=== PATIENT | male | born 1990 | race Caucasian/White ===

== ENCOUNTER 2024-04-17 12:00 | Emergency (ER) | payer SELFPAY ==
[2024-04-17 12:18] VITALS: BP 128/74; PULSE 78; RESP 20; TEMP 36.8; O2SAT 100
--- OUTSIDE RECORDS SUMMARY | 2024-04-17 13:46 | XMS_ITS | Referral Summary ---
Author Organization [facility] Address [address] [place] [phone] Care Team Providers Care Slot Technician Name Role Phone Joe Sultana NP Primary Care Provider Encounters Date Type Department Care Team Description 03/07/2024 4:24 PM [facility] - 03/07/2024 5:03 PM [facility] Emergency Department [address] [place] [phone] Uvulitis (Primary Dx); Acute pharyngitis, unspecified etiology Discharge Disposition: Discharge to home or self care 03/06/2024 7:25 AM [facility] - 03/06/2024 1:00 PM [facility] Emergency Department [address] [place] [phone] Wendie Christensen MD Nikolic, Jelena, MD Uvular edema (Primary Dx) Discharge Disposition: Left Against Medical Advice 03/05/2024 3:49 PM [facility] - 03/05/2024 4:52 PM [facility] Emergency Department [address] [place] [phone] Left hand pain (Primary Dx) Discharge Disposition: Discharge to home or self care 02/08/2024 10:07 AM [facility] - 02/08/2024 11:48 AM [facility] Emergency Department [address] [place] [phone] Mike Walker MD Abdominal pain (Primary Dx) Discharge Disposition: Discharge to home or self care 02/02/2024 5:37 AM [facility] - 02/02/2024 11:59 PM [facility] Hospital Encounter [facility] Emergency, Room R Discharge Disposition: Discharge to home or self care 02/01/2024 6:44 PM [facility] - 02/02/2024 5:33 AM [facility] Emergency [facility] Emergency Department [address] [place] [address] Braeden Damon MD Suicidal ideation (Primary Dx) Discharge Disposition: Discharge to not defined facility from Last 3 Months Allergies Active Allergy Reactions Criticality Noted Date Comments Cephalexin Nausea & Vomiting Medium 11/13/2018 Medications divalproex ER (DEPAKOTE ER) 250 mg 24 hr tablet Take 2 tablets (500 mg total) by mouth 2 (two) times a day 120 tablet 3 Active Additional Information Patient not taking.Reported on 03/06/2024 QUEtiapine (SEROquel) 50 mg tablet Take 1 tablet (50 mg total) by mouth nightly Active ARIPiprazole (ABILIFY) 10 mg tablet Take 1 tablet (10 mg total) by mouth daily Active ondansetron (ZOFRAN) 4 mg tablet Take 1 tablet (4 mg total) by mouth every 6 (six) hours 12 tablet 4 Active Additional Information Patient not taking.Reported on 03/06/2024 dicyclomine (BENTYL) 20 mg tablet Take 1 tablet (20 mg total) by mouth 2 (two) times a day 20 tablet 4 025 Active Additional Information Patient not taking.Reported on 03/06/2024 naproxen (NAPROSYN) 500 mg tablet Take 1 tablet (500 mg total) by mouth 2 (two) times a day with meals 30 tablet 5 Active LORazepam (ATIVAN) 0.5 mg tablet Take 1 tablet (0.5 mg total) by mouth every 6 (six) hours as needed Active azithromycin (Zithromax Z-Zenon) 250 mg tabletIndicatio ns:Uvulitis,Acu te pharyngitis, unspecified etiology Take 1 tablet (250 mg total) by mouth daily Take first 2 tablets together, then 1 every day until finished. Collaborating physician Robert Guzmán MD 6 tablet 5 Active chlorhexidine (PERIDEX) 0.12 % oral rinseIndication s:Uvulitis,Acut e pharyngitis, unspecified etiology Apply 15 mL to the mouth or throat 2 (two) times a day Swish around in mouth and gargle for 5 minutes then spit out. 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/2022 Paralysis of leg, right, transient 08/12/2021 Paralysis 08/12/2021 Diarrhea 07/31/2018 Non-intractable vomiting with nausea 07/31/2018 Bipolar 1 disorder, depressed ([facility]) 06/03/19 19 Right upper quadrant abdominal pain 06/02/2018 Visit for well man health check 06/02/2018 Gastroenteritis 02/15/2016 Overview (10/06/2021): 2 to 3 times a year Immunizations Immunization Administration Dates Next Due DTP 1992 DTP / HiB 08/31/1994,04/22/1993,01/27/1993 DTaP 12/13/1997 H1N1 Inj 02/26/2009 Hep B, Adolescent or Pediatric 04/22/1993,1992,1992 MMR 12/13/1997,08/31/1994 Meningococcal MCV4P (Menactra) 04/03/2009,2007 OPV 12/13/1997,08/31/1994,01/27/1993 ,1992 Td, adsorbed 05/14/2007 Tdap 07/10/2016 Social History Tobacco Use Types Packs/Day Years Used Date Smoking Tobacco: Some Days Cigarettes 0.3 19.2 Started: 2005 Passive Smoke Exposure: Never Smokeless Tobacco: Never Alcohol Use Standard Drinks/Week Comments Yes 0 (1 standard drink = 0.6 oz pur e alcohol) [facility] Utilities Answer Date Recorded In the past 12 months has e [employer], gas, oil, or water [employer] threatened to shut off services in your home? No 01/31/2023 Social Connection and Isolat ion Panel [NHANES] Answer Date Recorded In a typical week, how many times do you talk on the phone with family, friends, or neighbors? More than three times a week 01/31/2023 How often do you get togethe r with friends or relatives? More than three times a week 01/31/2023 How often do you attend chur ch or yazdanism services? Never 01/31/2023 Do you belong to any clubs o r organizations such as nondenominational groups, unions, fraternal or athletic groups, or school groups? No 01/31/2023 How often do you attend meet ings of the clubs or organizations you belong to? Never 01/31/2023 Are you , , di vorced, , never , or living with a partner? 01/31/2023 Overall Financial Resource Strain (CARDIA) Answe r Date Recorded How hard is it for you to pa y for the very basics like food, housing, medical care, and heating? Not hard at all 01/31/2023 Hunger Vital Sign Answer Date Recorded Within the past 12 months, y ou worried that your food would run out before you got the money to buy more. Never true 02/01/20 23 Within the past 12 months, t he food you bought just didn't last and you didn't have money to get more. Never true 01/31/2023 PRAPARE - Transportation Answer Date Re corded In the past 12 months, has l ack of transportation kept you from medical appointments or from getting medications? No 01/14 In the past 12 months, has l ack of transportation kept you from meetings, work, or from getting things needed for daily living? No 01/31/2023 Housing Stability Vital Sign Answer Enrike e Recorded In the last 12 months, was t here a time when you were not able to pay the mortgage or rent on time? No 01/31/2023 In the last 12 months, how many places have you lived? 1 01/31/2023 In the last 12 months, was t here a time when you did not have a steady place to sleep or slept in a usp (including now)? No 01/31/2023 Personal Safety Answer Date Recorded Have you ever been in or are you currently in a harmful physical or emotional relationship or is someone making you feel afraid or unsafe? Denies 03/07/2024 Education Answer Date Recorded What is the highest level of school you have completed or the highest degree you have received? High school graduate 01/31/2023 Sex and Gender Information Value Date Recorded Sex Assigned at Not on file Legal Sex Male 1:58 AM [facility] Gender Identity Not on file Sexual Orientation Not on file Last Filed Vital Signs Vital Sign Reading Time Taken Comments Blood Pressure 136/71 03/07/2024 3:55 PM [facility] Pulse 100 03/07/2024 3:55 PM [facility] Temperature 36.9 C (98.4 F) 03/07/2024 3:55 PM [facility] Respiratory Rate 16 03/07/2024 3:55 PM [facility] Oxygen Saturation 99% 03/07/2024 3:55 PM [facility] Inhaled Oxygen Concentration - - Weight 70.3 kg (155 lb) 03/07/2024 3:55 PM [facility] Height 175.3 cm (5' 9 ) 03/05/2024 3:24 PM [facility] Body Mass Index 22.89 03/05/2024 3:24 PM [facility] Plan of Treatment Not on file Medical Devices Implanted Type Area Silk Spooler Device Identifier Shelf Expiration Date Model / Serial / Lot [employer] K Wire Fix [place] Point Smooth Sgl End Ss [id number] - [id number] Implanted:Qty: 1 on 08/30/2022 by Zurdo Reese MD at [facility] Left: Hand [employer] [id number] / / [employer] Corkscrew Fiberwire 2.7mm 7mm 17.9mm Needle Wire Foot Ankle 2-0 [id number] - [id number] Implanted:Qty: 1 on 08/30/2022 by Zurdo Reese MD at [facility] Left: Hand [employer] [id number] / / Procedures Procedure Name Priority Date/Time Associated Diagnosis Comments CT SOFT TISSUE NECK W CONTRAST ED 03/06/2024 10:31 AM [facility]ER DRUGS OF ABUSE SCREEN, URINE WITHOUT CONFIRMATION STAT 03/06/2024 8:26 AM [facility]ER BLOOD CULTURE STAT 03/06/2024 8:26 AM [facility] BLOOD CULTURE STAT 03/06/2024 8:26 AM [facility] XR NECK SOFT TISSUE ED 03/06/2024 8 :07 AM [facility] EGFR STAT 03/06/2024 7:30 AM [facility] DIFFERENTIAL AUTO STAT 03/06/2024 7:3 0 AM [facility] SEPSIS LACTATE WITH REFLEX STAT 03/06/2024 7:30 AM [facility] COMPREHENSIVE METABOLIC PANEL STAT 03/06/2024 7:30 AM [facility] CBC WITH AUTO DIFFERENTIAL STAT 03/06/2024 7:30 AM [facility]ER STREPTOCOCCUS GROUP A PCR STAT 03/06/2024 7:30 AM [facility]ER INFLUENZA A/B, RSV, AND COVID-19 PCR Routine 03/06/2024 7:30 AM [facility] XR WRIST LEFT 3 OR MORE VIEWS ED 03/05/2024 4:11 PM [facility] XR HAND LEFT 3 OR MORE VIEWS ED 03/05/2024 4:[address] ABDOMEN PELVIS W CONTRAST ED 02/08/2024 10:58 AM [facility] EGFR STAT 02/08/2024 10:37 AM [facility] DIFFERENTIAL AUTO STAT 02/08/2024 10: 37 AM [facility]ER COMPREHENSIVE METABOLIC PANEL STAT 02/08/2024 10:37 AM B[facility] LO[facility]ER CBC WITH AUTO DIFFERENTIAL STAT 02/08/2024 10:37 AM [facility] EGFR STAT 02/01/2024 7:08 PM [facility] DIFFERENTIAL AUTO STAT 02/01/2024 7:0 8 PM [facility] ACETAMINOPHEN LEVEL STAT 02/01/2024 7 :08 PM [facility] SALICYLATE LEVEL STAT 02/01/2024 7:08 PM [facility] DRUGS OF ABUSE SCREEN, URINE WITHOUT CONFIRMATION STAT 02/01/2024 7:08 PM [facility]ER ETHANOL STAT 02/01/2024 7:08 PM [facility] THYROID FUNCTION CASCADE STAT 02/01/2024 7:08 PM [facility]ER COMPREHENSIVE METABOLIC PANEL STAT 02/01/2024 7:08 PM [facility] CBC WITH AUTO DIFFERENTIAL STAT 02/01/2024 7:08 PM [facility] COVID-19 CORONAVIRUS RNA Routine 02/01/2024 7:08 PM [facility] URINALYSIS AND REFLEX TO MICROSCOPIC AND CULTURE STAT 02/01/2024 7:08 PM BOLT LO[facility]ER from Last 3 Months Results * CT Neck Soft Tissue W Contrast (03/06/2024 10:31 AM B[facility]T LO[facility]ER) Anatomical Region Laterality Modality Head and Neck N/A Computed Tomogra phy 03/06/2024 10:4 8 AM B[facility]T LO[facility]ER Narrative 03/06/2024 10:59 AM B[facility]T LO[facility]ER EXAM DESCRIPTION: CT SOFT TISSUE NECK W CONTRAST REASON FOR STUDY: Epiglottitis or tonsillitis suspected, Soft tissue infection suspected, neck, xray done Pt to ED via EMS. Per EMS Pt arrived Pt has notable raspy voice and airway swelling. Pt given 125 solumedrol, 50 benadryl, and 0.3 EPI. Pt uvula swollen at time of arrival. Pt unsure what substance caused the reaction. TECHNIQUE: Post IV contrast scanning from skull base through lung apices. Reconstructed MPR images reviewed. All images stored on PACS. Automated exposure control was used as a dose optimization technique for this examination. CONTRAST TYPE/DOSE: 75mL of IOVERSOL 350 MG IODINE/ML INTRAVENOUS SYRINGE injected via intravenous COMPARISON: 03/06/2024 plain radiographs FINDINGS: Metallic artifact related to dental hardware identified obscuring detail. SOFT TISSUE: No mass, edema or inflammatory change. ORAL CAVITY/FLOOR OF MOUTH, PHARYNX, LARYNX, HYPOPHARYNX: Pharyngeal mucosal space demonstrates diffuse moderate edematous change. The uvula is prominent suggesting edematous enlargement. The adjacent tonsils are prominent in a relatively symmetric fashion suggesting inflammatory or edematous change without focal central fluid collection or peripheral enhancement to suggest abscess as best visualized. The epiglottis has a normal size and position. No marked surrounding edema or fluid collection. LYMPHADENOPATHY: No adenopathy. MAJOR SALIVARY GLANDS: No solid or cystic masses. No inflammatory changes. THYROID: Normal size. No nodules greater than 1 cm. VASCULATURE: No apparent critical stenosis or occlusion. INTRACRANIAL/SKULL BASE/INCLUDED ORBITS: Limited intracranial evaluation. No abnormal findings. PARANASAL SINUSES: Well-aerated. CERVICAL SPINE: No significant abnormalities. LUNG APICES: Clear. OTHER: No other significant finding. IMPRESSION: Diffuse edematous changes of the pharyngeal mucosal space and tonsils without evidence of abscess. No evidence of epiglottitis. THIS IS AN ELECTRONICALLY VERIFIED FINAL REPORT 03/06/2024 10:59 AM - Electronically signed by Kahlil Sommer M.D. RB: MARYLU Report ID: [id number] Reading Location: [place] [address] Procedure Note Kahlil Sommer MD - 03/06/2024 EXAM DESCRIPTION: CT SOFT TISSUE NECK W CONTRAST REASON FOR STUDY: Epiglottitis or tonsillitis suspected, Soft tissue infection suspected, neck, xray done Pt to ED via EMS. Per EMS Pt arrived Pt has notable raspy voice and airway swelling. Pt given 125 solumedrol, 50 benadryl, and 0.3 EPI. Ptuvula swollen at time of arrival. Pt unsure what substance caused the reaction. TECHNIQUE: Post IV contrast scanning from skull base through lung apices. Reconstructed MPR images reviewed. All images stored on PACS. Automated exposure control was used as a dose optimization technique for this examination. CONTRAST TYPE/DOSE: 75mL of IOVERSOL 350 MG IODINE/ML INTRAVENOUSSYRINGE injected via intravenous COMPARISON: 03/06/2024 plain radiographs FINDINGS: Metallic artifact related to dental hardware identified obscuring detail. SOFT TISSUE: No mass, edema or inflammatory change. ORAL CAVITY/FLOOR OF MOUTH, PHARYNX, LARYNX, HYPOPHARYNX: Pharyngeal mucosal space demonstrates diffuse moderate edematous change.The uvula is prominent suggesting edematous enlargement. The adjacent tonsils are prominent in a relatively symmetric fashion suggesting inflammatory or edematous change without focal central fluid collection or peripheral enhancement to suggest abscess as bestvisualized. The epiglottis has a normal size and position. No marked surroundingedema or fluid collection. LYMPHADENOPATHY: No adenopathy. MAJOR SALIVARY GLANDS: No solid or cystic masses. No inflammatorychanges. THYROID: Normal size. No nodules greater than 1 cm. VASCULATURE: No apparent critical stenosis or occlusion. INTRACRANIAL/SKULL BASE/INCLUDED ORBITS: Limited intracranialevaluation. No abnormal findings. PARANASAL SINUSES: Well-aerated. CERVICAL SPINE: No significant abnormalities. LUNG APICES: Clear. OTHER: No other significant finding. IMPRESSION: Diffuse edematous changes of the pharyngeal mucosal space and tonsilswithout evidence of abscess. No evidence of epiglottitis. THIS IS AN ELECTRONICALLY VERIFIED FINAL REPORT 03/06/2024 10:59 AM - Electronically signed by Kahlil Sommer M.D. RB: MARYLU Report ID: [id number] Reading Location: [place] [address] Wendie Christensen MD IM CT PROCEDURES Final R esult * (ABNORMAL) Drugs of Abuse Screen, Urine without Confirmation (03/06/2024 8:26 AM [facility]T [facility]ER) Amphetamine, ur Not Detected CutOff 500ng/mL Comment: Interpretive Data - Amphetamines: Samples containing greater than 500 ng/mL d-methamphetamine or other cross-reacting amphetamine compounds are reported as positive. Amphetamine immunoassays are subject to significant false positive rates due to cross-reactivity of non-amphetamine drugs. Confirmatory testing required for definitive results. Current Interpretive Data was last reviewed 2022. Barbiturates, ur Not Detected CutOff 200ng/mL [facility] ([place]) Comment: Interpretive Data - Barbiturates: Samples containing greater than 200 ng/mL secobarbital or other cross-reacting barbiturate compounds are reported as positive. False positive and false negative results are possible. Confirmatory testing required for definitive results. Current Interpretive Data was last reviewed 2022. Benzodiazepines, ur Screen Positive, presumptive (A) CutOff 100ng/mL [facility] ([place]) Comment: Interpretive Data - Benzodiazepines: Samples containing greater than 100 ng/mL nordiazepam or other cross-reacting compounds are reported as positive. False positive and false negative results are possible. Confirmatory testing required for definitive results. Current Interpretive Data was last reviewed 2022. Cannabinoids, ur Not Detected CutOff 50 ng/mL [facility] ([place]) Comment: Interpretive Data - Cannabinoids: Samples containing greater than 50 ng/mL delta-9 THC -COOH or other cross- reacting compounds are reported as positive. False positive and false negative results are possible. Confirmatory testing required for definitive results. Current Interpretive Data was last reviewed 2022. Cocaine, ur Not Detected CutOff 150ng/mL [facility] ([place]) Comment: Interpretive Data - Cocaine: Samples containing greater than 150 ng/mL benzoylecgonine or other cross- reacting compounds are reported as positive. False positive and false negative results are possible. Confirmatory testing required for definitive results. Current Interpretive Data was last reviewed 2022. Fentanyl, Ur Not Detected CutOff 5 ng/mL [facility] ([place]) Comment: Interpretive Data - Fentanyl: Samples containing greater than 5 ng/mL norfentanyl, fentanyl, or other cross-reacting fentanyl compounds are reported as positive. False positive and false negative results are possible. Confirmatory testing required for definitive results. Current Interpretive Data was last reviewed 2023. Methadone, ur Not Detected CutOff 300ng/mL [facility] ([place]) Comment: Interpretive Data - Methadone: Samples containing greater than 300 ng/mL d,l-methadone or other cross-reacting compounds are reported as positive. False positive and false negative results are possible. Confirmatory testing required for definitive results. Current Interpretive Data was last reviewed 2022. Opiates, ur Not Detected CutOff 300ng/mL [facility] ([place]) Comment: Interpretive Data - Opiates: Samples containing greater than 300 ng/mL morphine or other cross-reacting compounds are reported as positive. False positive and false negative results are possible. Confirmatory testing required for definitive results. Current Interpretive Data was last reviewed 2022. Oxycodone, ur Not Detected CutOff 100ng/mL [facility] ([place]) Comment: Interpretive Data - Oxycodone: Samples containing greater than 100 ng/mL oxycodone or other cross-reacting compounds are reported as positive. False positive and false negative results are possible. Confirmatory testing required for definitive results. Current Interpretive Data was last reviewed 2022. Phencyclidine, ur Not Detected CutOff 25 ng/mL [facility] ([place]) Comment: Interpretive Data - Phencyclidine: Samples containing greater than 25 ng/mL phencyclidine or other cross-reacting compounds are reported as positive. False positive and false negative results are possible. Confirmatory testing required for definitive results. Current Interpretive Data was last reviewed 2022. Urine Creatinine 128 mg/dL [facility] ([place]) Comment: Interpretive Data Urine Creatinine: < 10 mg/dL is extremely dilute = or > 10 but < 20 mg/dL is dilute = or > 20 mg/dL is normal Current Interpretive Data was last revised on 2017. Urine 03/06/2024 8:26 AM BOLT LO[facility]ER 03/06/2024 8:31 AM [facility]ER Narrative [facility] ([place]) - 03/06/2024 8:51 AM [facility] LO[facility]ER Drug of Abuse screening is performed by immunoassay for medical purposes only. This is not to be used for Pain Management purposes. us Wendie Christensen MD LAB URINE ORDERABLES Bianca garcia Result [facility] ([place]) 1 [facility] Department [place] [address] * Blood culture Blood Peripheral (03/06/2024 8:26 AM BOLT LOADER) Report Final Report: No growth Comment:Testing performed by : [facility], [address] [place] [address] Blood (Peripheral) 03/06/2024 8:26 AM BOLT LOADER 03/06/2024 10:13 AM B[facility]T LOADER Narrative [facility] ([place]) - 03/10/2024 12:00 PM BOLT LOADER From a different site than #1. Draw Blood cultures before administration of Antibiotics Collection->Peripheral 1. Blood cultures are incubated for 4 days on a continuously monitored blood culture system. The first report of a negative culture is issued within 24 hours of receipt of the specimen in the laboratory. 2. Positive culture results are reported as soon as they are detected. 3. The most important factor for detection of microbes in the setting of bloodstream infection is the volume of blood submitted for culture. Failure to collect an optimal blood volume can result in false negative blood cultures. 4. For pediatric patients, the recommended blood volume to collect follows a weight based strategy. See the electronic test catalog for collection instructions. 5. For positive blood cultures, a rapid molecular test may be performed for organism identification using the santosh ePlex blood culture identification panel for gram positive (BCID-GP) and gram negative (BCID-GN) organisms. This nucleic acid amplification test detects microbial DNA in positive blood culture broth. This assay has been cleared by the [place] Food and Drug Administration and its performance characteristics have been verified by the [facility]. For questions about this culture, contact the Microbiology Laboratory at [phone]. Interpretive data was last revised on 23. Wendie Christensen MD LAB MICROBIOLOGY - GENERA L ORDERABLES Final Result [facility] ([place] 1 [facility] Department [place] [address] * Blood culture Blood Peripheral (03/06/2024 8:26 AM BOLT LOADER) Report Final Report: No growth Comment:Testing performed by : [facility], [address] [facility], [place]., [address] Blood (Peripheral) 03/06/2024 8:26 AM BOLT LOADER 03/06/2024 10:13 AM BOLT LOADER Narrative [facility] ([place]) - 03/10/2024 12:00 PM BOLT LOADER Draw Blood cultures before administration of Antibiotics Collection->Peripheral 1. Blood cultures are incubated for 4 days on a continuously monitored blood culture system. The first report of a negative culture is issued within 24 hours of receipt of the specimen in the laboratory. 2. Positive culture results are reported as soon as they are detected. 3. The most important factor for detection of microbes in the setting of bloodstream infection is the volume of blood submitted for culture. Failure to collect an optimal blood volume can result in false negative blood cultures. 4. For pediatric patients, the recommended blood volume to collect follows a weight based strategy. See the electronic test catalog for collection instructions. 5. For positive blood cultures, a rapid molecular test may be performed for organism identification using the [employer] ePlex blood culture identification panel for gram positive (BCID-GP) and gram negative (BCID-GN) organisms. This nucleic acid amplification test detects microbial DNA in positive blood culture broth. This assay has been cleared by the [place] Food and Drug Administration and its performance characteristics have been verified by the [facility]. For questions about this culture, contact the Microbiology Laboratory at [phone]. Interpretive data was last revised on 23. Wendie Christensen MD LAB MICROBIOLOGY - GENERA L ORDERABLES Final Result [facility] ([place] 1 [facility] Department [place] [address] * XR Neck Soft Tissue (03/06/2024 8:07 AM BOLT LOADER) Anatomical Region Laterality Modality Head and Neck N/A Computed Radiogr aphy 03/06/2024 8:14 AM BOLT LOADER Narrative 03/06/2024 8:15 AM BOLT LOADER EXAM DESCRIPTION: XR NECK SOFT TISSUE REASON FOR STUDY: st and edematous uvula Pt arrived Pt has notible raspy voice and airway swelling. Pt given 125 solumedrol, 50 benadryl, and 0.3 EPI. Pt uvula swollen at time of arrival. Pt unsure what substance caused the reaction. Per pt, feels like throat is closing up x 2 days TECHNIQUE: 2 radiographic image of the soft tissues of the neck. COMPARISON: None FINDINGS: SOFT TISSUES: Epiglottis normal in thickness. No subglottic narrowing. Prevertebral soft tissues normal. BONY STRUCTURES: No acute osseous abnormality. LUNG APICES: Normal. OTHER: No radiopaque foreign body. No other significant finding. IMPRESSION: Negative study of the soft tissues of the neck. THIS IS AN ELECTRONICALLY VERIFIED FINAL REPORT 03/06/2024 8:15 AM - Electronically signed by Pacheco CAREY: AURELIO Report ID: [id number] Reading Location: [id number] Procedure Note Pacheco Arenas MD - 03/06/2024 EXAM DESCRIPTION: XR NECK SOFT TISSUE REASON FOR STUDY: st and edematous uvula Pt arrived Pt has notible raspy voice and airway swelling. Pt given 125 solumedrol, 50 benadryl, and 0.3 EPI. Pt uvula swollen at time of arrival.Pt unsure what substance caused the reaction. Per pt, feels like throat is closing up x 2 days TECHNIQUE: 2 radiographic image of the soft tissues of the neck. COMPARISON: None FINDINGS: SOFT TISSUES: Epiglottis normal in thickness. No subglottic narrowing. Prevertebral soft tissues normal. BONY STRUCTURES: No acute osseous abnormality. LUNG APICES: Normal. OTHER: No radiopaque foreign body. No other significant finding. IMPRESSION: Negative study of the soft tissues of the neck. THIS IS AN ELECTRONICALLY VERIFIED FINAL REPORT 03/06/2024 8:15 AM - Electronically signed by Pacheco CAREY: AURELIO Report ID: [id number] Reading Location: [id number] Wendie Christensen MD IMG XR PROCEDURES Final R esult * Influenza A/B, RSV, and COVID-19 PCR Nasopharyngeal (03/06/2024 7:30 AM BOLT LOADER) COVID-19 RNA Negative Negative Influenza A RNA Negative Negative [facility] ([place]) Influenza B RNA Negative Negative [facility] ([place]) RSV RNA Negative Negative [facility] ([place]) Comment: Interpretive data: Testing performed by [facility]. This test is performed using the ConteXtream Xpert Xpress CoV-2/Flu/RSV plus assay. This is a multiplex, real- time reverse transcriptase PCR assay intended for the qualitative detection of nucleic acid from SARS-CoV-2, influenza A, influenza B, and respiratory syncytial virus. This assay has been cleared by the [place] Food and Drug administration. The performance characteristics have been verified by the [facility]. Results must be considered in the clinical context, and a negative result does not rule out infection. Interpretive Data last revised 2023 Nasopharyngeal 03/06/2024 7: 30 AM BOLT LOADER 03/06/2024 7:38 AM BOLT LOADER Narrative [facility] ([place]) - 03/06/2024 8:18 AM BOLT LOADER Is the Patient experiencing symptoms consistent with COVID?->Yes Wendie Christensen MD LAB MICROBIOLOGY - GENERA L ORDERABLES Final Result [facility] ([place]) [address] [facility] Department [place] [address] * Streptococcus Group A PCR Throat (03/06/2024 7:30 AM BOLT LOADER) Pathologist [facility] Strep A DNA Not Detected Not Detected Comment: This test is performed using the ConteXtream Xpert Group A Streptococcal Assay. This is a qualitative, real-time PCR assay that detects Group A Strep using throat specimens from patients suspected of having streptococcal pharyngitis. This assay does not detect other beta-hemolytic streptococci including Group C or Group G. Group C and G have been associated with pharyngitis and, occasionally, acute nephritis but do not cause rheumatic fever. If suspected, order Throat Culture, Routine. This assay has been cleared by the [place] Food and Drug Administration, and its performance characteristics have been verified by the performing laboratory. Throat 03/06/2024 7:30 AM BOLT LOADER 03/06/2024 7:38 AM BOLT LOADER us Wendie Christensen MD LAB MICROBIOLOGY - GENERA L ORDERABLES Final Result [facility] ([place]) 1 [facility] [place] [address] * Sepsis Lactate w/ Reflex (03/06/2024 7:30 AM BOLT LOADER) Sepsis Lactate 1.6 0.7 - 2.0 mmol/L Blood 03/06/2024 7:30 AM BOLT LOADER 03/06/2024 7:38 AM BOLT LOADER Wendie Christensen MD LAB BLOOD ORDERABLES Bianca l Result [facility] ([place]) [address] [facility] [place] [address] * eGFR (03/06/2024 7:30 AM BOLT LOADER) eGFR 85 >=60 mL/min/1. 73 m2 Comment: Interpretive Data Reference Interval Normal >/= 90 mL/min/1.73m2 Mildly decreased* 60 - 89 mL/min/1.73m2 Mildly to moderately decreased 45 - 59 mL/min/1.73m2 Moderately to severely decreased 30 - 44 mL/min/1.73m2 Severely decreased 15 - 29 mL/min/1.73m2 Kidney Failure < 15 mL/min/1.73m2 *Relative to young adult level Estimated glomerular filtration rate is determined by the 2020 CKD-EPI equation recommended by the National Kidney Foundation (A Unifying Approach to GFR Estimation: Recommendations of the NKF-ASK Task Force on Reassessing the Inclusion of Race in Diagnosing Kidney Disease, JASN 2020). The CKD-EPI equation should not be used for patients with unstable renal function and has not been validated in children and those over 70. Current interpretive data was last reviewed 2020. Blood 03/06/2024 7:30 AM BOLT LOADER 03/06/2024 7:38 AM BOLT LOADER us Wendie Christensen MD LAB BLOOD ORDERABLES Bianca garcia Result [facility] ([place]) [address] [facility] Department [place] [address] * (ABNORMAL) Differential, auto (03/06/2024 7:30 AM BOLT LOADER) Neutrophil abs 10.3(H) 1.5 - 6.5 K/cumm Imm gran abs 0.0 0.0 - 0.1 K/cumm [facility] ([place]) Lymphocyte abs 1.1 0.8 - 3.3 K/cumm [facility] ([place]) Monocyte abs 1.4(H) 0.2 - 0.8 K/cumm [facility] ([place]) Eosinophil abs 0.0 0.0 - 0.5 K/cumm [facility] ([place]) Basophil abs 0.1 0.0 - 0.1 K/cumm [facility] ([place]) Neutrophil pct 79.5 % [facility] ([place]) Comment: Interpretive Data Percent cell count reference ranges are not reported, since discordance with absolute values may lead to misinterpretation of CBC data. Current Interpretive Data was last revised on 2017. Imm gran pct 0.3 % [facility] ([place]) Comment: Interpretive Data Percent cell count reference ranges are not reported, since discordance with absolute values may lead to misinterpretation of CBC data. Current Interpretive Data was last revised on 2017. Lymphocyte pct 8.6 % [facility] ([place]) Comment: Interpretive Data Percent cell count reference ranges are not reported, since discordance with absolute values may lead to misinterpretation of CBC data. Current Interpretive Data was last revised on 2017. Monocyte pct 10.8 % [facility] ([place]) Comment: Interpretive Data Percent cell count reference ranges are not reported, since discordance with absolute values may lead to misinterpretation of CBC data. Current Interpretive Data was last revised on 2017. Eosinophil pct 0.3 % [facility] ([place]) Comment: Interpretive Data Percent cell count reference ranges are not reported, since discordance with absolute values may lead to misinterpretation of CBC data. Current Interpretive Data was last revised on 2017. Basophil pct 0.5 % [facility] ([place]) Comment: Interpretive Data Percent cell count reference ranges are not reported, since discordance with absolute values may lead to misinterpretation of CBC data. Current Interpretive Data was last revised on 2017. Blood 03/06/2024 7:30 AM BOLT LOADER 03/06/2024 7:38 AM BOLT LOADER us Wendie Christensen MD LAB BLOOD ORDERABLES Bianca garcia Result [facility] ([place]) [address] [facility] Department [place] [address] * (ABNORMAL) CBC with auto differential (03/06/2024 7:30 AM BOLT LOADER) WBC 12.9(H) 3.8 - 9.9 K/cumm Hgb 16.5 13.0 - 17.5 g/dL [facility] ([place]) Hct 48.9 38.9 - 50.3 % [facility] ([place]) Plt 247 150 - 400 K/cumm [facility] ([place]) MPV 11.7 9.1 - 12.3 fL [facility] ([place]) RBC 5.41 4.30 - 5.80 M/cumm [facility] ([place]) MCV 90.4 81.3 - 96.4 fL [facility] ([place]) MCH 30.5 27.1 - 33.3 pg [facility] ([place]) MCHC 33.7 32.3 - 35.7 g/dL [facility] ([place]) RDW CV 12.6 11.1 - 14.9 % [facility] ([place]) RDW SD 41.9 35.7 - 48.1 fL [facility] ([place]) NRBC abs 0.00 0.00 - 0.01 K/cumm [facility] ([place]) Blood 03/06/2024 7:30 AM BOLT LOADER 03/06/2024 7:38 AM BOLT LOADER us Wendie Christensen MD LAB BLOOD ORDERABLES Bianca garcia Result [facility] ([place]) [address] [facility] Department [place] [address] * (ABNORMAL) Comprehensive metabolic panel (03/06/2024 7:30 AM BOLT LOADER) Sodium 143 135 - 145 mmol/L Potassium, pl 3.6 3.3 - 4.9 mmol/L [facility] ([place]) Chloride 100 97 - 110 mmol/L [facility] ([place]) CO2 31 22 - 32 mmol/L [facility] ([place]) Anion gap 12 2 - 15 mmol/L [facility] ([place]) BUN 6 6 - 25 mg/dL [facility] ([place]) Creatinine 1.17 0.80 - 1.30 mg/dL [facility] ([place]) Glucose 105 70 - 199 mg/dL [facility] ([place]) Comment: Interpretive Data Fasting glucose >/= 126 mg/dl is diagnostic for diabetes. Fasting is defined as no caloric intake for at least 8 hours. Fasting glucose between 100 mg/dl to 125 mg/dl is diagnostic of prediabetes. In a patient with classic symptoms of hyperglycemia or hyperglycemic crisis, a random glucose >/= 200 mg/dl is diagnostic for diabetes. In the absence of unequivocal hyperglycemia, results should be confirmed by repeat testing. The classification and Diagnosis of Diabetes Diabetes Care 2021; 46: S19-S40. Current interpretive data was last revised 2022. Calcium 10.6(H) 8.5 - 10.3 mg/dL [facility] ([place]) Bilirubin, total 0.4 0.1 - 1.2 mg/dL [facility] ([place]) Protein, pl 8.5 6.5 - 8.5 g/dL [facility] ([place]) Albumin 5.4(H) 3.5 - 5.0 g/dL [facility] ([place]) Alk phos 104 40 - 130 Units/L [facility] ([place]) ALT 20 7 - 55 Units/L [facility] ([place]) AST 19 10 - 50 Units/L [facility] ([place]) Blood 03/06/2024 7:30 AM BOLT LOADER 03/06/2024 7:38 AM BOLT LOADER Wendie Christensen MD LAB BLOOD ORDERABLES Bianca garcia Result [facility] ([place]) [address] [facility] [place] [address] * XR Hand Left 3 or More Views (03/05/2024 4:11 PM BOLT LOADER) Anatomical Region Laterality Modality Upper Extremities, Hand Left Computed Radiography 03/05/2024 4:33 PM BOLT LOADER Narrative 03/05/2024 4:34 PM BOLT LOADER EXAM DESCRIPTION: XR WRIST LEFT 3 OR MORE VIEWS; XR HAND LEFT 3 OR MORE VIEWS REASON FOR STUDY: pain Pt to ED for c/o left hand and wrist pain after punching a wall today. TECHNIQUE: Frontal, lateral, and oblique radiographic view(s) of the left hand and wrist . COMPARISON: 09/25/2022 FINDINGS: There is no definite evidence of acute displaced fracture or dislocation involving the left hand and wrist. There are postsurgical changes noted involving the left 1st metacarpal head. There is mild soft tissue swelling. IMPRESSION: Mild soft tissue swelling involving the left hand and wrist without definite evidence of acute displaced fracture or dislocation. THIS IS AN ELECTRONICALLY VERIFIED FINAL REPORT 03/05/2024 4:34 PM - Electronically signed by Omar Santana D.O. PS: PS Report ID: [id number] Reading Location: [id number] Procedure Note Omar Santana, DO - 03/05/2024 EXAM DESCRIPTION: XR WRIST LEFT 3 OR MORE VIEWS; XR HAND LEFT 3 OR MOREVIEWS REASON FOR STUDY: pain Pt to ED for c/o left hand and wrist pain after punching a wall today. TECHNIQUE: Frontal, lateral, and oblique radiographic view(s) of theleft hand and wrist . COMPARISON: 09/25/2022 FINDINGS: There is no definite evidence of acute displaced fracture or dislocation involving the left hand and wrist. There are postsurgical changes noted involving the left 1st metacarpal head. There is mild soft tissueswelling. IMPRESSION: Mild soft tissue swelling involving the left hand and wrist withoutdefinite evidence of acute displaced fracture or dislocation. THIS IS AN ELECTRONICALLY VERIFIED FINAL REPORT 03/05/2024 4:34 PM - Electronically signed by Omar Santana D.O. PS: PS Report ID: [id number] Reading Location: [id number] us Robert Guzmán MD IMG XR PROCEDURES Final Res ult * XR Wrist Left 3 or More Views (03/05/2024 4:11 PM BOLT LOADER) Anatomical Region Laterality Modality Upper Extremities, Wrist Left Compute d Radiography 03/05/2024 4:33 PM BOLT LOADER Narrative 03/05/2024 4:34 PM BOLT LOADER EXAM DESCRIPTION: XR WRIST LEFT 3 OR MORE VIEWS; XR HAND LEFT 3 OR MORE VIEWS REASON FOR STUDY: pain Pt to ED for c/o left hand and wrist pain after punching a wall today. TECHNIQUE: Frontal, lateral, and oblique radiographic view(s) of the left hand and wrist . COMPARISON: 09/25/2022 FINDINGS: There is no definite evidence of acute displaced fracture or dislocation involving the left hand and wrist. There are postsurgical changes noted involving the left 1st metacarpal head. There is mild soft tissue swelling. IMPRESSION: Mild soft tissue swelling involving the left hand and wrist without definite evidence of acute displaced fracture or dislocation. THIS IS AN ELECTRONICALLY VERIFIED FINAL REPORT 03/05/2024 4:34 PM - Electronically signed by Omar Santana D.O. PS: PS Report ID: [id number] Reading Location: [id number] Procedure Note Omar Santana DO - 03/05/2024 EXAM DESCRIPTION: XR WRIST LEFT 3 OR MORE VIEWS; XR HAND LEFT 3 OR MOREVIEWS REASON FOR STUDY: pain Pt to ED for c/o left hand and wrist pain after punching a wall today. TECHNIQUE: Frontal, lateral, and oblique radiographic view(s) of theleft hand and wrist . COMPARISON: 09/25/2022 FINDINGS: There is no definite evidence of acute displaced fracture or dislocation involving the left hand and wrist. There are postsurgical changes noted involving the left 1st metacarpal head. There is mild soft tissueswelling. IMPRESSION: Mild soft tissue swelling involving the left hand and wrist withoutdefinite evidence of acute displaced fracture or dislocation. THIS IS AN ELECTRONICALLY VERIFIED FINAL REPORT 03/05/2024 4:34 PM - Electronically signed by Omar Santana D.O. PS: PS Report ID: [id number] Reading Location: [place] [id number] us Robert Guzmán MD IMG XR PROCEDURES Final Res ult * CT Abdomen Pelvis W Contrast (02/08/2024 10:58 AM BOLT LOADER) Anatomical Region Laterality Modality Body N/A Computed Tomogra phy 02/08/2024 11:0 6 AM BOLT LOADER Narrative 02/08/2024 11:10 AM BOLT LOADER EXAM DESCRIPTION: CT ABDOMEN PELVIS W CONTRAST REASON FOR STUDY: RLQ abdominal pain Right side abdomen pain that started this morning No prior surgeries TECHNIQUE: CT scan of the abdomen and pelvis performed with intravenous and without oral contrast using helical scanning technique with dynamic intravenous contrast injection. Reconstructed coronal and sagittal MPR images reviewed. All images stored on PACS. Automated exposure control was used as a dose optimization technique for this examination. CONTRAST TYPE/DOSE: 75mL of IOVERSOL 350 MG IODINE/ML INTRAVENOUS SYRINGE injected via intravenous COMPARISON: 01/29/2023 FINDINGS: LOWER CHEST: Heart size is stable. There is no definite evidence of pericardial effusion. There is a minimal bibasilar subsegmental atelectasis. LIVER: The liver is grossly stable in size and contour. There is no definite evidence of focal hepatic lesion. The hepatic and portal veins are grossly patent. GALLBLADDER: Grossly unremarkable. BILE DUCTS: No intrahepatic or extrahepatic ductal dilatation. SPLEEN: The spleen is grossly stable in size and unremarkable. PANCREAS: The pancreas appears grossly stable without definite of pancreatic ductal dilatation, peripancreatic inflammatory changes, or peripancreatic fluid collection. ADRENALS: The bilateral adrenal glands are grossly symmetrical and unremarkable. KIDNEYS/URINARY TRACT: The bilateral kidneys enhance symmetrically. There is no definite evidence of a focal renal lesion. There is no definite evidence of hydronephrosis or hydroureter. There is mild mucosal thickening of the urinary bladder. The prostate gland measures 4.2 cm. GI: There is no definite evidence of a bowel obstruction. There is mild mucosal thickening of the small bowel, which is most significant proximally. There is an air-filled appendix identified without definite evidence of pericecal or periappendiceal inflammatory changes to suggest appendicitis. There are few scattered colonic diverticula without definite evidence of diverticulitis. There is a mucosal thickening of the transverse colon, descending colon, and distal sigmoid colon. There is no definite evidence of free air or fluid in the abdomen and pelvis. There is no definite evidence of lymphadenopathy in the abdomen and pelvis. There are scattered prominent subcentimeter mesenteric lymph nodes noted with largest measuring 0.8 cm (axial image 61). MUSCULOSKELETAL: There is a mild S shaped scoliotic curvature of the spine. OTHER: No other abnormality. IMPRESSION: No definite evidence of bowel obstruction. Mild mucosal thickening of the small bowel, which is most significant proximally, and is concerning for mild enteritis of infectious or inflammatory etiology. Mild mucosal thickening of the transverse colon, descending colon, and distal sigmoid colon, which may be related to underdistention versus a component of mild colitis of infectious or inflammatory etiology. Mild mucosal thickening of the urinary bladder, which may be related to underdistention versus cystitis. Clinical correlation with urinary analysis is recommended as clinically indicated. Prominent subcentimeter mesenteric lymph nodes, which are nonspecific, and may be related to mesenteric adenitis. Few scattered colonic diverticula without definite evidence of diverticulitis. Appendix is visualized without definite evidence of pericecal or periappendiceal inflammatory changes to suggest appendicitis.. THIS IS AN ELECTRONICALLY VERIFIED FINAL REPORT 02/08/2024 11:10 AM - Electronically signed by Omar Santana D.O. PS: PEPE Report ID: [id number] Reading Location: [id number] Procedure Note Omar Santana, DO - 02/08/2024 EXAM DESCRIPTION: CT ABDOMEN PELVIS W CONTRAST REASON FOR STUDY: RLQ abdominal pain Right side abdomen pain that started this morning No prior surgeries TECHNIQUE: CT scan of the abdomen and pelvis performed with intravenousand without oral contrast using helical scanning technique with dynamic intravenous contrast injection. Reconstructed coronal and sagittal MPRimages reviewed. All images stored on PACS. Automated exposure control was usedas a dose optimization technique for this examination. CONTRAST TYPE/DOSE: 75mL of IOVERSOL 350 MG IODINE/ML INTRAVENOUSSYRINGE injected via intravenous COMPARISON: 01/29/2023 FINDINGS: LOWER CHEST: Heart size is stable. There is no definite evidence of pericardial effusion. There is a minimal bibasilar subsegmentalatelectasis. LIVER: The liver is grossly stable in size and contour. There is no definite evidence of focal hepatic lesion. The hepatic and portal veinsare grossly patent. GALLBLADDER: Grossly unremarkable. BILE DUCTS: No intrahepatic or extrahepatic ductal dilatation. SPLEEN: The spleen is grossly stable in size and unremarkable. PANCREAS: The pancreas appears grossly stable without definite ofpancreatic ductal dilatation, peripancreatic inflammatory changes, or peripancreatic fluid collection. ADRENALS: The bilateral adrenal glands are grossly symmetrical and unremarkable. KIDNEYS/URINARY TRACT: The bilateral kidneys enhance symmetrically.There is no definite evidence of a focal renal lesion. There is no definite evidence of hydronephrosis or hydroureter. There is mild mucosalthickening of the urinary bladder. The prostate gland measures 4.2 cm. GI: There is no definite evidence of a bowel obstruction. There is mild mucosal thickening of the small bowel, which is most significantproximally. There is an air-filled appendix identified without definite evidence of pericecal or periappendiceal inflammatory changes to suggest appendicitis. There are few scattered colonic diverticula without definite evidence of diverticulitis. There is a mucosal thickening of the transverse colon, descending colon, and distal sigmoid colon. There is no definite evidenceof free air or fluid in the abdomen and pelvis. There is no definiteevidence of lymphadenopathy in the abdomen and pelvis. There are scattered prominent subcentimeter mesenteric lymph nodes noted with largest measuring 0.8 cm (axial image 61). MUSCULOSKELETAL: There is a mild S shaped scoliotic curvature of thespine. OTHER: No other abnormality. IMPRESSION: No definite evidence of bowel obstruction. Mild mucosal thickening of the small bowel, which is most significant proximally, and is concerning for mild enteritis of infectious orinflammatory etiology. Mild mucosal thickening of the transverse colon, descending colon, anddistal sigmoid colon, which may be related to underdistention versus a componentof mild colitis of infectious or inflammatory etiology. Mild mucosal thickening of the urinary bladder, which may be related to underdistention versus cystitis. Clinical correlation with urinaryanalysis is recommended as clinically indicated. Prominent subcentimeter mesenteric lymph nodes, which are nonspecific,and may be related to mesenteric adenitis. Few scattered colonic diverticula without definite evidence ofdiverticulitis. Appendix is visualized without definite evidence of pericecal or periappendiceal inflammatory changes to suggest appendicitis.. THIS IS AN ELECTRONICALLY VERIFIED FINAL REPORT 02/08/2024 11:10 AM - Electronically signed by Omar Santana D.O. PS: PS Report ID: [id number] Reading Location: [place] [id number] Mike Walker MD IMG CT PROCEDURES Final Result * eGFR (02/08/2024 10:37 AM BOLT LOADER) eGFR >90 >=60 mL/min/1. 73 m2 Comment: Interpretive Data Reference Interval Normal >/= 90 mL/min/1.73m2 Mildly decreased* 60 - 89 mL/min/1.73m2 Mildly to moderately decreased 45 - 59 mL/min/1.73m2 Moderately to severely decreased 30 - 44 mL/min/1.73m2 Severely decreased 15 - 29 mL/min/1.73m2 Kidney Failure < 15 mL/min/1.73m2 *Relative to young adult level Estimated glomerular filtration rate is determined by the 2020 CKD-EPI equation recommended by the National Kidney Foundation (A Unifying Approach to GFR Estimation: Recommendations of the NKF-ASK Task Force on Reassessing the Inclusion of Race in Diagnosing Kidney Disease, JASN 202). The CKD-EPI equation should not be used for patients with unstable renal function and has not been validated in children and those over 70. Current interpretive data was last reviewed 2020. Blood 02/08/2024 10:3 7 AM BOLT LOADER 02/08/2024 10:43 AM BOLT LOADER us Mike Walker MD LAB BLOOD ORDERABLES Final Res ult [facility] ([place] [place] [address] * Differential, auto (02/08/2024 10:37 AM BOLT LOADER) Neutrophil abs 3.7 1.5 - 6.5 K/cumm Imm gran abs 0.0 0.0 - 0.1 K/cumm [facility] ([place]) Lymphocyte abs 1.7 0.8 - 3.3 K/cumm [facility] ([place]) Monocyte abs 0.7 0.2 - 0.8 K/cumm [facility] ([place]) Eosinophil abs 0.2 0.0 - 0.5 K/cumm [facility] ([place]) Basophil abs 0.1 0.0 - 0.1 K/cumm [facility] ([place]) Neutrophil pct 59.0 % [facility] ([place]) Comment: Interpretive Data Percent cell count reference ranges are not reported, since discordance with absolute values may lead to misinterpretation of CBC data. Current Interpretive Data was last revised on 2017. Imm gran pct 0.3 % [facility] ([place]) Comment: Interpretive Data Percent cell count reference ranges are not reported, since discordance with absolute values may lead to misinterpretation of CBC data. Current Interpretive Data was last revised on 2017. Lymphocyte pct 26.3 % [facility] ([place]) Comment: Interpretive Data Percent cell count reference ranges are not reported, since discordance with absolute values may lead to misinterpretation of CBC data. Current Interpretive Data was last revised on 2017. Monocyte pct 10.7 % [facility] ([place]) Comment: Interpretive Data Percent cell count reference ranges are not reported, since discordance with absolute values may lead to misinterpretation of CBC data. Current Interpretive Data was last revised on 2017. Eosinophil pct 2.7 % [facility] ([place]) Comment: Interpretive Data Percent cell count reference ranges are not reported, since discordance with absolute values may lead to misinterpretation of CBC data. Current Interpretive Data was last revised on 2017. Basophil pct 1.0 % [facility] ([place]) Comment: Interpretive Data Percent cell count reference ranges are not reported, since discordance with absolute values may lead to misinterpretation of CBC data. Current Interpretive Data was last revised on 2017. Blood 02/08/2024 10:3 7 AM BOLT LOADER 02/08/2024 10:43 AM BOLT LOADER us Mike Walker MD LAB BLOOD ORDERABLES Final Res ult [facility] ([place] [place] [address] * CBC with auto differential (02/08/2024 10:37 AM BOLT LOADER) WBC 6.3 3.8 - 9.9 K/cumm Hgb 15.9 13.0 - 17.5 g/dL [facility] ([place]) Hct 47.7 38.9 - 50.3 % [facility] ([place]) Plt 219 150 - 400 K/cumm [facility] ([place]) MPV 11.1 9.1 - 12.3 fL [facility] ([place]) RBC 5.34 4.30 - 5.80 M/cumm [facility] ([place]) MCV 89.3 81.3 - 96.4 fL [facility] ([place]) MCH 29.8 27.1 - 33.3 pg [facility] ([place]) MCHC 33.3 32.3 - 35.7 g/dL [facility] ([place]) RDW CV 12.5 11.1 - 14.9 % [facility] ([place]) RDW SD 41.2 35.7 - 48.1 fL [facility] ([place]) NRBC abs 0.00 0.00 - 0.01 K/cumm [facility] ([place]) Blood 02/08/2024 10:3 7 AM BOLT LOADER 02/08/2024 10:43 AM BOLT LOADER us Mike Walker MD LAB BLOOD ORDERABLES Final Res ult [facility] ([place]) [facility] [place] [address] * Comprehensive metabolic panel (02/08/2024 10:37 AM BOLT LOADER) Sodium 140 135 - 145 mmol/L Potassium, pl 4.6 3.3 - 4.9 mmol/L [facility] ([place]) Chloride 101 97 - 110 mmol/L [facility] ([place]) CO2 30 22 - 32 mmol/L [facility] ([place]) Anion gap 8 2 - 15 mmol/L [facility] ([place]) BUN 10 6 - 25 mg/dL [facility] ([place]) Creatinine 0.97 0.80 - 1.30 mg/dL [facility] ([place]) Glucose 104 70 - 199 mg/dL [facility] ([place]) Comment: Interpretive Data Fasting glucose >/= 126 mg/dl is diagnostic for diabetes. Fasting is defined as no caloric intake for at least 8 hours. Fasting glucose between 100 mg/dl to 125 mg/dl is diagnostic of prediabetes. In a patient with classic symptoms of hyperglycemia or hyperglycemic crisis, a random glucose >/= 200 mg/dl is diagnostic for diabetes. In the absence of unequivocal hyperglycemia, results should be confirmed by repeat testing. The classification and Diagnosis of Diabetes Diabetes Care 2021; 46: S19-S40. Current interpretive data was last revised 2022. Calcium 10.3 8.5 - 10.3 mg/dL [facility] ([place]) Bilirubin, total 0.4 0.1 - 1.2 mg/dL [facility] ([place]) Protein, pl 7.8 6.5 - 8.5 g/dL [facility] ([place]) Albumin 4.9 3.5 - 5.0 g/dL [facility] ([place]) Alk phos 107 40 - 130 Units/L [facility] ([place]) ALT 24 7 - 55 Units/L [facility] ([place]) AST 22 10 - 50 Units/L [facility] ([place]) Blood 02/08/2024 10:3 7 AM BOLT LOADER 02/08/2024 10:43 AM BOLT LOADER Mike Walker MD LAB BLOOD ORDERABLES Final Res ult [facility] ([place]) 1 [facility] [place] [address] * COVID-19 Coronavirus RNA Nasopharyngeal (02/01/2024 7:08 PM BOLT LOADER) COVID-19 RNA Negative Negative Nasopharyngeal 02/01/2024 7: 08 PM BOLT LOADER 02/01/2024 7:13 PM BOLT LOADER Narrative [facility] ([place]) - 02/01/2024 7:48 PM BOLT LOADER Is the patient experiencing any symptoms consistent with COVID (eg. Fever, cough, shortness of breath)?->No What is the reason for testing?->Screening prior to Behavioral health admission Interpretive data: Testing performed by [facility]. This test is performed using the ConteXtream Xpert Xpress CoV-2 plus assay. This is a real-time RT-PCR test intended for the qualitative detection of nucleic acid from the SARS-CoV-2. This assay has been cleared by the [place] Food and Drug administration. The performance characteristics have been verified by [facility]. Results must be considered in the clinical context, and a negative result does not rule out infection. Interpretive data last revised 2023. Interpretive data: Testing performed by [facility]. This test is performed using the ConteXtream Xpert Xpress CoV-2 plus assay. This is a real-time RT-PCR test intended for the qualitative detection of nucleic acid from the SARS-CoV-2. This assay has been cleared by the [place] Food and Drug administration. The performance characteristics have been verified by [facility]. Results must be considered in the clinical context, and a negative result does not rule out infection. Interpretive data last revised 2023. Braeden Damon MD LAB MICROBIOLOGY - GENERAL O RDERABLES Final Result [facility] ([place]) 1 [facility] [place] [address] * eGFR (02/01/2024 7:08 PM BOLT LOADER) Pathologist [facility] eGFR >90 >=60 mL/min/1. 73 m2 Comment: Interpretive Data Reference Interval Normal >/= 90 mL/min/1.73m2 Mildly decreased* 60 - 89 mL/min/1.73m2 Mildly to moderately decreased 45 - 59 mL/min/1.73m2 Moderately to severely decreased 30 - 44 mL/min/1.73m2 Severely decreased 15 - 29 mL/min/1.73m2 Kidney Failure < 15 mL/min/1.73m2 *Relative to young adult level Estimated glomerular filtration rate is determined by the 2020 CKD-EPI equation recommended by the National Kidney Foundation (A Unifying Approach to GFR Estimation: Recommendations of the NKF-ASK Task Force on Reassessing the Inclusion of Race in Diagnosing Kidney Disease, JASN 2020). The CKD-EPI equation should not be used for patients with unstable renal function and has not been validated in children and those over 70. Current interpretive data was last reviewed 2020. Blood 02/01/2024 7:08 PM BOLT LOADER 02/01/2024 7:13 PM BOLT LOADER us Wendie Christensen MD LAB BLOOD ORDERABLES Bianca l Result [facility] ([place]) 1 [facility] Department [place] [address] * Differential, auto (02/01/2024 7:08 PM BOLT LOADER) Pathologist [facility] Neutrophil abs 3.6 1.5 - 6.5 K/cumm Imm gran abs 0.0 0.0 - 0.1 K/cumm [facility] ([place]) Lymphocyte abs 1.9 0.8 - 3.3 K/cumm [facility] ([place]) Monocyte abs 0.7 0.2 - 0.8 K/cumm [facility] ([place]) Eosinophil abs 0.1 0.0 - 0.5 K/cumm [facility] ([place]) Basophil abs 0.0 0.0 - 0.1 K/cumm [facility] ([place]) Neutrophil pct 56.9 % [facility] ([place]) Comment: Interpretive Data Percent cell count reference ranges are not reported, since discordance with absolute values may lead to misinterpretation of CBC data. Current Interpretive Data was last revised on 2017. Imm gran pct 0.2 % [facility] ([place]) Comment: Interpretive Data Percent cell count reference ranges are not reported, since discordance with absolute values may lead to misinterpretation of CBC data. Current Interpretive Data was last revised on 2017. Lymphocyte pct 29.6 % [facility] ([place]) Comment: Interpretive Data Percent cell count reference ranges are not reported, since discordance with absolute values may lead to misinterpretation of CBC data. Current Interpretive Data was last revised on 2017. Monocyte pct 10.6 % [facility] ([place]) Comment: Interpretive Data Percent cell count reference ranges are not reported, since discordance with absolute values may lead to misinterpretation of CBC data. Current Interpretive Data was last revised on 2017. Eosinophil pct 2.1 % [facility] ([place]) Comment: Interpretive Data Percent cell count reference ranges are not reported, since discordance with absolute values may lead to misinterpretation of CBC data. Current Interpretive Data was last revised on 2017. Basophil pct 0.6 % [facility] ([place]) Comment: Interpretive Data Percent cell count reference ranges are not reported, since discordance with absolute values may lead to misinterpretation of CBC data. Current Interpretive Data was last revised on 2017. Blood 02/01/2024 7:08 PM BOLT LOADER 02/01/2024 7:13 PM BOLT LOADER us Wendie Christensen MD LAB BLOOD ORDERABLES Bianca garcia Result [facility] ([place]) 1 [facility] [place] [address] * Thyroid Function [place] (02/01/2024 7:08 PM BOLT LOADER) TSH 1.17 0.30 - 4.20 mcIUnit/mL Blood 02/01/2024 7:08 PM BOLT LOADER 02/01/2024 7:13 PM BOLT LOADER Braeden Damon MD LAB BLOOD ORDERABLES Final R esult [facility] ([place]) 1 [facility] [place] [address] * Urinalysis reflex to microscopic and culture Urine (02/01/2024 7:08 PM BOLT LOADER) Color, ur Yellow Yellow Clarity, ur Clear Clear [facility] ([place]) Specific gravity, ur 1.009 1.003 - 1.030 [facility] ([place]) pH, urine 7.0 [facility] ([place]) Comment: Interpretive Data U rine pH is affected by diet, medications, systemic acid-base disturbances, and renal tubular function. pH may affect urinary stone formation. For example, urine pH below 6.0 may help reduce the tendency for calcium phosphate stones and pH greater than 6.0 may reduce the tendency for uric acid stone formation. Source: [facility] Current Interpretive Data was last revised on 2017 Protein, ur ql Negative Negative [facility] ([place]) Glucose, ur ql Negative Negative [facility] ([place]) Ketones, ur Negative Negative [facility] ([place]) Bilirubin, ur Negative Negative [facility] ([place]) Blood, ur Negative Negative [facility] ([place]) Urobilinogen, ur <2.0 <2.0 mg/dL [facility] ([place]) Nitrite, ur Negative Negative [facility] ([place]) Leukocyte esterase, ur Negative Negative [facility] ([place]) UA reflex comment Reflex conditions for microscopic UA and culture not met. [facility] ([place]) Urine 02/01/2024 7:08 PM BOLT LOADER 02/01/2024 7:13 PM BOLT LOADER Braeden Damon MD LAB MICROBIOLOGY - GENERAL O RDERABLES Final Result [facility] ([place]) 1 [facility] [place] [address] * CBC with auto differential (02/01/2024 7:08 PM BOLT LOADER) Pathologist [facility] WBC 6.3 3.8 - 9.9 K/cumm Hgb 15.4 13.0 - 17.5 g/dL [facility] ([place]) Hct 46.0 38.9 - 50.3 % [facility] ([place]) Plt 209 150 - 400 K/cumm [facility] ([place]) MPV 11.1 9.1 - 12.3 fL [facility] ([place]) RBC 5.21 4.30 - 5.80 M/cumm [facility] ([place]) MCV 88.3 81.3 - 96.4 fL [facility] ([place]) MCH 29.6 27.1 - 33.3 pg [facility] ([place]) MCHC 33.5 32.3 - 35.7 g/dL [facility] ([place]) RDW CV 12.5 11.1 - 14.9 % [facility] ([place]) RDW SD 40.8 35.7 - 48.1 fL [facility] ([place]) NRBC abs 0.00 0.00 - 0.01 K/cumm [facility] ([place]) Blood (Blood, Venous) 02/01/2024 7:08 PM BOLT LOADER 02/01/2024 7:13 PM BOLT LOADER Braeden Damon MD LAB BLOOD ORDERABLES Final R esult [facility] ([place]) 1 [facility] [place] [address] * Drugs of Abuse Screen, Urine without Confirmation (02/01/2024 7:08 PM BOLT LOADER) [facility] Amphetamine, ur Not Detected CutOff 500ng/mL Comment: Interpretive Data - Amphetamines: Samples containing greater than 500 ng/mL d-methamphetamine or other cross-reacting amphetamine compounds are reported as positive. Amphetamine immunoassays are subject to significant false positive rates due to cross-reactivity of non-amphetamine drugs. Confirmatory testing required for definitive results. Current Interpretive Data was last reviewed 2022. Barbiturates, ur Not Detected CutOff 200ng/mL [facility] ([place]) Comment: Interpretive Data - Barbiturates: Samples containing greater than 200 ng/mL secobarbital or other cross-reacting barbiturate compounds are reported as positive. False positive and false negative results are possible. Confirmatory testing required for definitive results. Current Interpretive Data was last reviewed 2022. Benzodiazepines, ur Not Detected CutOff 100ng/mL [facility] ([place]) Comment: Interpretive Data - Benzodiazepines: Samples containing greater than 100 ng/mL nordiazepam or other cross-reacting compounds are reported as positive. False positive and false negative results are possible. Confirmatory testing required for definitive results. Current Interpretive Data was last reviewed 2022. Cannabinoids, ur Not Detected CutOff 50 ng/mL [facility] ([place]) Comment: Interpretive Data - Cannabinoids: Samples containing greater than 50 ng/mL delta-9 THC -COOH or other cross- reacting compounds are reported as positive. False positive and false negative results are possible. Confirmatory testing required for definitive results. Current Interpretive Data was last reviewed 2022. Cocaine, ur Not Detected CutOff 150ng/mL [facility] ([place]) Comment: Interpretive Data - Cocaine: Samples containing greater than 150 ng/mL benzoylecgonine or other cross- reacting compounds are reported as positive. False positive and false negative results are possible. Confirmatory testing required for definitive results. Current Interpretive Data was last reviewed 2022. Fentanyl, Ur Not Detected CutOff 5 ng/mL [facility] ([place]) Comment: Interpretive Data - Fentanyl: Samples containing greater than 5 ng/mL norfentanyl, fentanyl, or other cross-reacting fentanyl compounds are reported as positive. False positive and false negative results are possible. Confirmatory testing required for definitive results. Current Interpretive Data was last reviewed 2023. Methadone, ur Not Detected CutOff 300ng/mL [facility] ([place]) Comment: Interpretive Data - Methadone: Samples containing greater than 300 ng/mL d,l-methadone or other cross-reacting compounds are reported as positive. False positive and false negative results are possible. Confirmatory testing required for definitive results. Current Interpretive Data was last reviewed 2022. Opiates, ur Not Detected CutOff 300ng/mL [facility] ([place]) Comment: Interpretive Data - Opiates: Samples containing greater than 300 ng/mL morphine or other cross-reacting compounds are reported as positive. False positive and false negative results are possible. Confirmatory testing required for definitive results. Current Interpretive Data was last reviewed 2022. Oxycodone, ur Not Detected CutOff 100ng/mL [facility] ([place]) Comment: Interpretive Data - Oxycodone: Samples containing greater than 100 ng/mL oxycodone or other cross-reacting compounds are reported as positive. False positive and false negative results are possible. Confirmatory testing required for definitive results. Current Interpretive Data was last reviewed 2022. Phencyclidine, ur Not Detected CutOff 25 ng/mL [facility] ([place]) Comment: Interpretive Data - Phencyclidine: Samples containing greater than 25 ng/mL phencyclidine or other cross-reacting compounds are reported as positive. False positive and false negative results are possible. Confirmatory testing required for definitive results. Current Interpretive Data was last reviewed 2022. Urine Creatinine 147 mg/dL [facility] ([place]) Comment: Interpretive Data Urine Creatinine: < 10 mg/dL is extremely dilute = or > 10 but < 20 mg/dL is dilute = or > 20 mg/dL is normal Current Interpretive Data was last revised on 2017. Urine 02/01/2024 7:08 PM BOLT LOADER 02/01/2024 9:00 PM BOLT LOADER Narrative [facility] ([place]) - 02/01/2024 9:28 PM BOLT LOADER Drug of Abuse screening is performed by immunoassay for medical purposes only. This is not to be used for Pain Management purposes. Braeden Damon MD LAB URINE ORDERABLES Final R esult [facility] ([place]) 1 [facility] [place] [address] * Ethanol (02/01/2024 7:08 PM BOLT LOADER) Ethanol <10 <=10 mg/dL Comment: Interpretive Data Legal limit of intoxication > or = 80 mg/dL Levels > or = 400 mg/dL are potentially TOXIC. Current interpretive data was last revised on 2018. Blood 02/01/2024 7:08 PM BOLT LOADER 02/01/2024 7:13 PM BOLT LOADER Braeden Damon MD LAB BLOOD ORDERABLES Final R esult [facility] ([place]) 1 [facility] [place] [address] * Acetaminophen level (02/01/2024 7:08 PM BOLT LOADER) Acetaminophen <5 <=5 mcg/mL Comment: Markedly elevated levels of Acetaminophen and it's metabolites may lead to false low test results for cholesterol, HDL, triglycerides and uric acid with the manufacturers test methods used by our lab. Interpretive Data Significant hepatic injury may occur and treatment with n-acetyl cysteine is generally recommended if the acetaminophen level exceeds: 150 mcg/mL at 4 hours after ingestion 75 mcg/mL at 8 hours after ingestion 38 mcg/mL at 12 hours after ingestion 19 mcg/mL at 16 hours after ingestion Consult toxicology or poison control ([phone]) for unknown ingestion time. Current interpretive data was last revised 2022. Blood 02/01/2024 7:08 PM BOLT LOADER 02/01/2024 7:13 PM BOLT LOADER Braeden Damon MD LAB BLOOD ORDERABLES Final R esult [facility] [place]) 1 [facility] [place] [address] * Salicylate level (02/01/2024 7:08 PM BOLT LOADER) Salicylate <5.0 <=5.0 mg/dL Comment: Interpretive Data Toxic: 30 mg/dL or greater. Current interpretive data was last revised 2022. Blood 02/01/2024 7:08 PM BOLT LOADER 02/01/2024 7:13 PM BOLT LOADER Braeden Damon MD LAB BLOOD ORDERABLES Final R esult [facility] ([place]) 1 [facility] [place] [address] * (ABNORMAL) Comprehensive metabolic panel (02/01/2024 7:08 PM BOLT LOADER) Sodium 141 135 - 145 mmol/L Potassium, pl 3.8 3.3 - 4.9 mmol/L [facility] ([place]) Chloride 101 97 - 110 mmol/L [facility] ([place]) CO2 27 22 - 32 mmol/L [facility] ([place]) Anion gap 12 2 - 15 mmol/L [facility] ([place]) BUN 5(L) 6 - 25 mg/dL [facility] ([place]) Creatinine 1.07 0.80 - 1.30 mg/dL [facility] ([place]) Glucose 92 70 - 199 mg/dL [facility] ([place]) Comment: Interpretive Data Fasting glucose >/= 126 mg/dl is diagnostic for diabetes. Fasting is defined as no caloric intake for at least 8 hours. Fasting glucose between 100 mg/dl to 125 mg/dl is diagnostic of prediabetes. In a patient with classic symptoms of hyperglycemia or hyperglycemic crisis, a random glucose >/= 200 mg/dl is diagnostic for diabetes. In the absence of unequivocal hyperglycemia, results should be confirmed by repeat testing. The classification and Diagnosis of Diabetes Diabetes Care 202; 46: S19-S40. Current interpretive data was last revised 2022. Calcium 9.9 8.5 - 10.3 mg/dL [facility] ([place]) Bilirubin, total 0.4 0.1 - 1.2 mg/dL [facility] ([place]) Protein, pl 7.5 6.5 - 8.5 g/dL [facility] ([place]) Albumin 4.9 3.5 - 5.0 g/dL [facility] ([place]) Alk phos 113 40 - 130 Units/L [facility] ([place]) ALT 14 7 - 55 Units/L [facility] ([place]) AST 15 10 - 50 Units/L [facility] ([place]) Blood 02/01/2024 7:08 PM BOLT LOADER 02/01/2024 7:13 PM BOLT LOADER Braeden Damon MD LAB BLOOD ORDERABLES Final R esult [facility] ([place]) 1 [facility] [place] [address] from Last 3 Months Insurance [facility] [employer] GENERIC Advance Directives For more information, please contact: [phone] * Full Code (Latest Code Status on File) Date Activated Date Inactivated Comments 01/27/2023 6:08 PM 02/02/2023 1:35 AM * Full Code Date Activated Date Inactivated Comments 01/27/2023 4:42 PM 01/27/2023 6:08 PM Care Teams Slot Technician Relationship Specialty Start Date End Date Joe Sultana NP [address] [place] [address] PCP - General Nurse Practitioner 01/15/24
--- OUTSIDE RECORDS SUMMARY | 2024-04-17 13:46 | XMS_ITS | Patient Health Summary ---
Author Organization [facility] Cardback Address [address] [place] [address] Care Team Providers Care Golf Club Manager Name Role Phone None, Physician Primary Care Provider Unavailabl e Note from [facility],non-owned Affiliates and Associated Physician Practices is amultiple site organization consisting of ambulatory clinics and hospital sitesin [place], [place], [place] and [place]. This disclosure is being madepursuant to the Care Everywhere program and may not contain all information available regarding this patient. Last updated 17.[facility] Social History Tobacco Use Types Packs/Day Years Used Date Smoking Tobacco: Never Assessed Sex and Gender Information Value Date Recorded Sex Assigned at Not on file Gender Identity Not on file Sexual Orientation Not on file Care Teams Golf Club Manager Relationship Specialty Start Date End Date None, Physician [address] [place] [address] PCP - General 07/27/22
--- OUTSIDE RECORDS SUMMARY | 2024-04-17 13:46 | XMS_ITS | Referral Summary ---
Author Organization [facility] Address [address] [place] [address] Care Team Providers Care Tank Calibrator Name Role Phone None, Physician Primary Care Provider Unavailabl e Source Comments [facility],non-owned Affiliates and Associated Physician Practices is amultiple site organization consisting of ambulatory clinics and hospital sitesin [place], [place], [place] and [place]. This disclosure is being madepursuant to the Care Everywhere program and may not contain all information available regarding this patient. Last updated 17.[facility] Social History Tobacco Use Types Packs/Day Years Used Date Smoking Tobacco: Never Assessed Sex and Gender Information Value Date Recorded Sex Assigned at Not on file Gender Identity Not on file Sexual Orientation Not on file Plan of Treatment Not on file Care Teams Tank Calibrator Relationship Specialty Start Date End Date None, Physician [address] [place] [address] PCP - General 07/27/22
--- OUTSIDE RECORDS SUMMARY | 2024-04-17 13:46 | XMS_ITS | Clinical Summary ---
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 08/25/2022 Paralysis of leg, right, transient 08/12/2021 Paralysis 08/12/2021 Diarrhea 07/31/2018 Non-intractable vomiting with nausea 07/31/2018 Bipolar 1 disorder, depressed ([facility]) 06/03/19 19 Right upper quadrant abdominal pain 06/02/2018 Visit for well [facility] 06/02/2018 Gastroenteritis 02/15/2016 Overview (10/06/2021): 2 to 3 times a year Encounters Date Type Department Care Team Description 03/07/2024 4:24 PM SEISMOGRAPH SHOOTER - 03/07/2024 5:03 PM [facility] Emergency [facility] Emergency Department [address] [place] [address] Uvulitis (Primary Dx); Acute pharyngitis, unspecified etiology Discharge Disposition: Discharge to home or self care 03/06/2024 7:25 AM SEISMOGRAPH SHOOTER - 03/06/2024 1:00 PM [facility] Emergency [facility] Emergency Department [address] [place] [address] Wendie Christensen MD Nikolic, Jelena, MD Uvular edema (Primary Dx) Discharge Disposition: Left Against Medical Advice 03/05/2024 3:49 PM SEISMOGRAPH SHOOTER - 03/05/2024 4:52 PM SEISMOGRAPH SHOOTER Emergency [facility] Emergency Department [address] [place] [address] Left hand pain (Primary Dx) Discharge Disposition: Discharge to home or self care 02/08/2024 10:07 AM SEISMOGRAPH SHOOTER - 02/08/2024 11:48 AM SEISMOGRAPH SHOOTER Emergency [facility] Emergency Department [address] [place] [address] Mike Walker MD Abdominal pain (Primary Dx) Discharge Disposition: Discharge to home or self care 02/02/2024 5:37 AM SEISMOGRAPH SHOOTER - 02/02/2024 11:59 PM SEISMOGRAPH SHOOTER Hospital Encounter [facility] Emergency, Room R Discharge Disposition: Discharge to home or self care 02/01/2024 6:44 PM SEISMOGRAPH SHOOTER - 02/02/2024 5:33 AM SEISMOGRAPH SHOOTER Emergency [facility] Emergency Department [address] [place] [address] Braeden Damon MD Suicidal ideation (Primary Dx) Discharge Disposition: Discharge to not defined facility from Last 3 Months Immunizations Immunization Administration Dates Next Due DTP 1992 DTP / HiB 08/31/1994,04/22/1993,01/27/1993 DTaP 12/13/1997 H1N1 Inj 02/26/2009 Hep B, Adolescent or Pediatric 04/22/1993,1992,1992 MMR 12/13/1997,08/31/1994 Meningococcal MCV4P (Menactra) 04/03/2009,2007 OPV 12/13/1997,08/31/1994,01/27/1993 ,1992 Td, adsorbed 05/14/2007 Tdap 07/10/2016 Surgical History Surgery Date Site/Laterality Comments COLONOSCOPY 11/14/2018 - 12/14/2018 ESOPHAGOGASTRODUODENOSCOPY 11/14/2018 - 12/14/2018 Medical History Medical History Date Comments Depression Non-intractable vomiting with nausea 07/31/2018 Family History Medical History Relation Name Comments Diabetes Cousin Mental illness Father My dad Gokul [employer] Cancer Maternal Grandfather Ko valdivia Heart attack Maternal Grandfather Ko valdivia Hypertension Maternal Grandfather Ko valdivia Relation Name Status Comments Cousin Father My dad Gokul [place] Maternal Grandfather Ko valdivia Social History Tobacco Use Types Packs/Day Years Used Date Smoking Tobacco: Some Days Cigarettes 0.3 19.2 Started: 2005 Passive Smoke Exposure: Never Smokeless Tobacco: Never Alcohol Use Standard Drinks/Week Comments Yes 0 (1 standard drink = 0.6 oz pur e alcohol) [facility] Utilities Answer Date Recorded In the past 12 months has th e [place], gas, oil, or water [employer] threatened to shut off services in your [...] often do you attend chur ch or anabaptist services? Never 01/31/2023 Do you belong to any clubs o r organizations such as latter-day groups, unions, fraternal or athletic groups, or [...] place to sleep or slept in a senior care (including now)? No 01/31/2023 Personal Safety Answer [...] on file Legal Sex Male 1:58 AM SEISMOGRAPH SHOOTER Gender Identity Not on file Sexual Orientation Not on file Obstetrics History Last Filed Vital Signs Vital Sign Reading Time Taken Comments Blood Pressure 136/71 03/07/2024 3:55 PM SEISMOGRAPH SHOOTER Pulse 100 03/07/2024 3:55 PM SEISMOGRAPH SHOOTER Temperature 36.9 C (98.4 F) 03/07/2024 3:55 PM SEISMOGRAPH SHOOTER Respiratory Rate 16 03/07/2024 3:55 PM SEISMOGRAPH SHOOTER Oxygen Saturation 99% 03/07/2024 3:55 PM SEISMOGRAPH SHOOTER Inhaled Oxygen Concentration - - Weight 70.3 kg (155 lb) 03/07/2024 3:55 PM SEISMOGRAPH SHOOTER Height 175.3 cm (5' 9 ) 03/05/2024 3:24 PM SEISMOGRAPH SHOOTER Body Mass Index 22.89 03/05/2024 3:24 PM SEISMOGRAPH SHOOTER Plan of Treatment Health Maintenance Due Date Last Done Comments Depression Screening 1992 Hepatitis C Screening 1992 Varicella Vaccines (1 of 2 - 13+ 2-dose series) 2005 Regular Well Visit/Exam 18-64 2010 Pneumococcal vaccine <65 (1 of 2 - PCV) 09/28/2011 Covid-19 Vaccine (3 - season) 2023 02/06/2021, 01/14/2021 Influenza Vaccine (#1) 2023 DTaP/Tdap/Td Vaccine (8 - Td or Tdap) 05/20/2033 05/21/2023, 07/10/2016, 05/14/2007, Additional history exists Hepatitis B Screening Completed 06/12/2008 , 01/13/2008, 12/13/2007, Additional history exists HPV Vaccines Aged Out No longer eligi ble based on patient's age to complete this topic Medical Devices Implanted Type Area Hose Sprayer Device Identifier Shelf Expiration Date Model / Serial / Lot [employer] K Wire Fix [place] Smooth Sgl End Ss [id number] - [id number] Implanted:Qty: 1 on 08/30/2022 by Zurdo Reese MD at [facility] [place] Left: Hand [employer] [id number] S / / [employer] Corkscrew Fiberwire 2.7mm 7mm 17.9mm Needle Wire Foot Ankle 2-0 [id number] - [id number] Implanted:Qty: 1 on 08/30/2022 by Zurdo Reese MD at [facility] [place] Left: Hand [employer] [id number] / / Procedures Procedure Name Priority Date/Time Associated Diagnosis Comments CT SOFT TISSUE NECK W CONTRAST ED 03/06/2024 10:31 AM SEISMOGRAPH SHOOTER DRUGS OF ABUSE SCREEN, URINE WITHOUT CONFIRMATION STAT 03/06/2024 8:26 AM SEISMOGRAPH SHOOTER BLOOD CULTURE STAT 03/06/2024 8:26 AM SEISMOGRAPH SHOOTER BLOOD CULTURE STAT 03/06/2024 8:26 AM SEISMOGRAPH SHOOTER XR NECK SOFT TISSUE ED 03/06/2024 8 :07 AM SEISMOGRAPH SHOOTER EGFR STAT 03/06/2024 7:30 AM SEISMOGRAPH SHOOTER DIFFERENTIAL AUTO STAT 03/06/2024 7:3 0 AM SEISMOGRAPH SHOOTER SEPSIS LACTATE WITH REFLEX STAT 03/06/2024 7:30 AM SEISMOGRAPH SHOOTER COMPREHENSIVE METABOLIC PANEL STAT 03/06/2024 7:30 AM SEISMOGRAPH SHOOTER CBC WITH AUTO DIFFERENTIAL STAT 03/06/2024 7:30 AM SEISMOGRAPH SHOOTER STREPTOCOCCUS GROUP A PCR STAT 03/06/2024 7:30 AM SEISMOGRAPH SHOOTER INFLUENZA A/B, RSV, AND COVID-19 PCR Routine 03/06/2024 7:30 AM SEISMOGRAPH SHOOTER XR WRIST LEFT 3 OR MORE VIEWS ED 03/05/2024 4:11 PM SEISMOGRAPH SHOOTER XR HAND LEFT 3 OR MORE VIEWS ED 03/05/2024 4:[address] ABDOMEN PELVIS W CONTRAST ED 02/08/2024 10:58 AM SEISMOGRAPH SHOOTER EGFR STAT 02/08/2024 10:37 AM SEISMOGRAPH SHOOTER DIFFERENTIAL AUTO STAT 02/08/2024 10: 37 AM SEISMOGRAPH SHOOTER COMPREHENSIVE METABOLIC PANEL STAT 02/08/2024 10:37 AM SEISMOGRAPH SHOOTER CBC WITH AUTO DIFFERENTIAL STAT 02/08/2024 10:37 AM SEISMOGRAPH SHOOTER EGFR STAT 02/01/2024 7:08 PM SEISMOGRAPH SHOOTER DIFFERENTIAL AUTO STAT 02/01/2024 7:0 8 PM SEISMOGRAPH SHOOTER ACETAMINOPHEN LEVEL STAT 02/01/2024 7 :08 PM SEISMOGRAPH SHOOTER SALICYLATE LEVEL STAT 02/01/2024 7:08 PM SEISMOGRAPH SHOOTER DRUGS OF ABUSE SCREEN, URINE WITHOUT CONFIRMATION STAT 02/01/2024 7:08 PM SEISMOGRAPH SHOOTER ETHANOL STAT 02/01/2024 7:08 PM SEISMOGRAPH SHOOTER THYROID FUNCTION CASCADE STAT 02/01/2024 7:08 PM SEISMOGRAPH SHOOTER COMPREHENSIVE METABOLIC PANEL STAT 02/01/2024 7:08 PM SEISMOGRAPH SHOOTER CBC WITH AUTO DIFFERENTIAL STAT 02/01/2024 7:08 PM SEISMOGRAPH SHOOTER COVID-19 CORONAVIRUS RNA Routine 02/01/2024 7:08 PM SEISMOGRAPH SHOOTER URINALYSIS AND REFLEX TO MICROSCOPIC AND CULTURE STAT 02/01/2024 7:08 PM SEISMOGRAPH SHOOTER from Last 3 Months Results * CT Neck Soft Tissue W Contrast (03/06/2024 10:31 AM SEISMOGRAPH SHOOTER) Anatomical Region Laterality Modality Head and Neck N/A Computed Tomogra phy 03/06/2024 10:4 8 AM SEISMOGRAPH SHOOTER Narrative 03/06/2024 10:59 AM SEISMOGRAPH SHOOTER EXAM DESCRIPTION: CT SOFT TISSUE NECK W [...] Kahlil Sommer M.D. RB: MARYLU Report ID: [id number] Reading Location: [id number] Procedure Note Kahlil Sommer MD - 03/06/2024 [...] Kahlil Sommer M.D. RB: MARYLU Report ID: [id number] Reading Location: [place] [address] Wendie Christensen MD IMG CT PROCEDURES Final R esult * (ABNORMAL) Drugs of Abuse Screen, Urine without Confirmation (03/06/2024 8:26 AM SEISMOGRAPH SHOOTER) Amphetamine, ur Not Detected CutOff 500ng/mL Comment: [...] 2022. Oxycodone, ur Not Detected CutOff 100ng/mL [facility] ([place]) Comment: Interpretive Data - Oxycodone: Samples containing greater than 100 ng/mL oxycodone or other cross-reacting compounds are reported as positive. False positive and false negative results are possible. Confirmatory testing required for definitive results. Current Interpretive Data was last reviewed 2022. Phencyclidine, ur Not Detected CutOff 25 ng/mL [facility] ([place]) Comment: Interpretive Data - Phencyclidine: Samples [...] revised on 2017. Urine 03/06/2024 8:26 AM SEISMOGRAPH SHOOTER 03/06/2024 8:31 AM SEISMOGRAPH SHOOTER Narrative [facility] ([place]) - 03/06/2024 8:51 AM SEISMOGRAPH SHOOTER Drug of Abuse screening is performed by immunoassay for medical purposes only. This is not to be used for Pain Management purposes. Wendie Christensen MD LAB URINE ORDERABLES Bianca garcia Result [facility] ([place]) [address] [facility] Department [place] [address] * Blood culture Blood Peripheral (03/06/2024 8:26 AM SEISMOGRAPH SHOOTER) Report Final Report: No growth Comment:Testing performed by : [facility], [address] [facility], [place]., [address] Blood (Peripheral) 03/06/2024 8:26 AM SEISMOGRAPH SHOOTER 03/06/2024 10:13 AM SEISMOGRAPH SHOOTER Narrative [facility] ([place]) - 03/10/2024 12:00 PM SEISMOGRAPH SHOOTER From a different site than #1. Draw [...] performance characteristics have been verified by the [facility] Microbiology Laboratory. For questions about this culture, contact the Microbiology Laboratory at [phone]. Interpretive data was last revised on 23. Wendie Christensen MD LAB MICROBIOLOGY - GENERA L ORDERABLES Final Result [facility] ([place]) [address] [facility] Department [place] [address] * Blood culture Blood Peripheral (03/06/2024 8:26 AM SEISMOGRAPH SHOOTER) Report Final Report: No growth Comment:Testing performed by : [facility], [address] [facility], [place]., [address] Blood (Peripheral) 03/06/2024 8:26 AM SEISMOGRAPH SHOOTER 03/06/2024 10:13 AM SEISMOGRAPH SHOOTER Narrative [facility] ([place]) - 03/10/2024 12:00 PM SEISMOGRAPH SHOOTER Draw Blood cultures before administration of Antibiotics [...] performance characteristics have been verified by the [facility]biology Laboratory. For questions about this culture, contact the Microbiology Laboratory at [phone]. Interpretive data was last revised on 23. us Wendie Christensen MD LAB MICROBIOLOGY - GENERA L ORDERABLES Final Result [facility] [address] [facility] [place] [address] * XR Neck Soft Tissue (03/06/2024 8:07 AM SEISMOGRAPH SHOOTER) Anatomical Region Laterality Modality Head and Neck N/A Computed Radiogr aphy 03/06/2024 8:14 AM SEISMOGRAPH SHOOTER Narrative 03/06/2024 8:15 AM SEISMOGRAPH SHOOTER EXAM DESCRIPTION: XR NECK SOFT TISSUE REASON [...] 8:15 AM - Electronically signed by Pacheco Arenas M.D. JA: AURELIO Report ID: [id number] Reading Location: [id number] Procedure Note Pacheco Arenas MD - 03/06/2024 [...] 8:15 AM - Electronically signed by Pacheco Arenas M.D. JA: AURELIO Report ID: [id number] Reading Location: [place] [address] Wendie Christensen MD IMG XR PROCEDURES Final R esult * Influenza A/B, RSV, and COVID-19 PCR Nasopharyngeal (03/06/2024 7:30 AM SEISMOGRAPH SHOOTER) COVID-19 RNA Negative Negative Influenza A RNA Negative Negative [facility] ([place]) Influenza B RNA Negative Negative [facility] ([place]) RSV RNA Negative Negative [facility] ([place]) Comment: Interpretive data: Testing performed by [facility]. This test is performed using the CareXtend Xpert Xpress CoV-2/Flu/RSV plus assay. This is a multiplex, real- time reverse transcriptase PCR assay intended for the qualitative detection of nucleic acid from SARS-CoV-2, influenza A, influenza B, and respiratory syncytial virus. This assay has been cleared by the [place] Food and Drug administration. The performance characteristics have been verified by the [facility]. Results must be considered in the clinical context, and a negative result does not rule out infection. Interpretive Data last revised 2023 Nasopharyngeal 03/06/2024 7: 30 AM SEISMOGRAPH SHOOTER 03/06/2024 7:38 AM SEISMOGRAPH SHOOTER Narrative [facility] ([place]) - 03/06/2024 8:18 AM SEISMOGRAPH SHOOTER Is the Patient experiencing symptoms consistent with COVID?->Yes Wendie Christensen MD LAB MICROBIOLOGY - GENERA L ORDERABLES Final Result Performing Organization Address [facility] Co de Phone Number [facility] ([place]) [address] [place] [address] * Streptococcus Group A PCR Throat (03/06/2024 7:30 AM SEISMOGRAPH SHOOTER) [facility] Strep A DNA Not Detected Not Detected Comment: This test is performed using the CareXtend Xpert Group A Streptococcal Assay. This is [...] the performing laboratory. Throat 03/06/2024 7:30 AM SEISMOGRAPH SHOOTER 03/06/2024 7:38 AM SEISMOGRAPH SHOOTER Wendie Christensen MD LAB MICROBIOLOGY - GENERA L ORDERABLES Final Result Performing Organization Address [facility] de Phone Number [facility] ([place]) [address] [facility] [place] [address] * Sepsis Lactate w/ Reflex (03/06/2024 7:30 AM SEISMOGRAPH SHOOTER) [facility] Sepsis Lactate 1.6 0.7 - 2.0 mmol/L Blood 03/06/2024 7:30 AM SEISMOGRAPH SHOOTER 03/06/2024 7:38 AM SEISMOGRAPH SHOOTER Wendie Christensen MD LAB BLOOD ORDERABLES Bianca l Result Performing Organization Address City/[facility]/ZIP Co de Phone Number [facility] ([place]) [address] [facility] [employer] [place] [address] * eGFR (03/06/2024 7:30 AM SEISMOGRAPH SHOOTER) eGFR 85 >=60 mL/min/1. 73 m2 Comment: [...] last reviewed 2020. Blood 03/06/2024 7:30 AM SEISMOGRAPH SHOOTER 03/06/2024 7:38 AM SEISMOGRAPH SHOOTER Wendie Christensen MD LAB BLOOD ORDERABLES Bianca l Result [facility] ([place]) [address] [facility] [place] [place] [address] * (ABNORMAL) Differential, auto (03/06/2024 7:30 AM SEISMOGRAPH SHOOTER) Neutrophil abs 10.3(H) 1.5 - 6.5 K/cumm Imm gran abs 0.0 0.0 - 0.1 K/cumm [facility] ([place]) Lymphocyte abs 1.1 0.8 - 3.3 K/cumm [facility] ([place]) Monocyte abs 1.4(H) 0.2 - 0.8 K/cumm [facility] ([place]) Eosinophil abs 0.0 0.0 - 0.5 K/cumm [facility] ([place]) Basophil abs 0.1 0.0 - 0.1 K/cumm [facility] ([place]) Neutrophil pct 79.5 % [facility] ([place]) Comment: Interpretive Data Percent cell count reference ranges are not reported, since discordance with absolute values may lead to misinterpretation of CBC data. Current Interpretive Data was last revised on 2017. Imm gran pct 0.3 % [facility] ([place]) Comment: Interpretive Data [...] 2017. Monocyte pct 10.8 % [facility] ([place]) Comment: Interpretive Data [...] revised on 2017. Blood 03/06/2024 7:30 AM SEISMOGRAPH SHOOTER 03/06/2024 7:38 AM SEISMOGRAPH SHOOTER us Wendie Christensen MD LAB BLOOD ORDERABLES Bianca jose Result [facility] ([place]) [address] [facility] Department [place] [address] * (ABNORMAL) CBC with auto differential (03/06/2024 7:30 AM SEISMOGRAPH SHOOTER) [facility] WBC 12.9(H) 3.8 - 9.9 K/cumm Hgb [...] [facility] ([place]) Blood 03/06/2024 7:30 AM SEISMOGRAPH SHOOTER 03/06/2024 7:38 AM SEISMOGRAPH SHOOTER Wendie Christensen MD LAB BLOOD ORDERABLES Bianca l Result [facility] ([place]) [address] [facility] [place] [address] * (ABNORMAL) Comprehensive metabolic panel (03/06/2024 7:30 AM SEISMOGRAPH SHOOTER) [facility] Sodium 143 135 - 145 mmol/L Potassium, [...] [facility] ([place]) Blood 03/06/2024 7:30 AM SEISMOGRAPH SHOOTER 03/06/2024 7:38 AM SEISMOGRAPH SHOOTER us Wendie Christensen MD LAB BLOOD ORDERABLES Bianca l Result [facility] ([place]) [address] [facility] Department [place] [address] * XR Hand Left 3 or More Views (03/05/2024 4:11 PM SEISMOGRAPH SHOOTER) Anatomical Region Laterality Modality Upper Extremities, Hand Left Computed Radiography 03/05/2024 4:33 PM SEISMOGRAPH SHOOTER Narrative 03/05/2024 4:34 PM SEISMOGRAPH SHOOTER EXAM DESCRIPTION: XR WRIST LEFT 3 OR [...] Omar Santana D.O. PS: PS Report ID: [id number] Reading Location: [id number] Procedure Note Omar Santana DO - 03/05/2024 [...] Omar Santana D.O. PS: PS Report ID: [id number] Reading Location: [id number] Robert Guzmán MD IMG XR PROCEDURES Final Res ult * XR Wrist Left 3 or More Views (03/05/2024 4:11 PM SEISMOGRAPH SHOOTER) Anatomical Region Laterality Modality Upper Extremities, Wrist Left Compute d Radiography 03/05/2024 4:33 PM SEISMOGRAPH SHOOTER Narrative 03/05/2024 4:34 PM SEISMOGRAPH SHOOTER EXAM DESCRIPTION: XR WRIST LEFT 3 OR [...] Omar Santana D.O. PS: PS Report ID: [id number] Reading Location: [id number] Procedure Note Omar Santana, - 03/05/2024 EXAM DESCRIPTION: XR WRIST LEFT [...] Omar Santana D.O. PS: PS Report ID: [id number] Reading Location: [id number] us Robert Guzmán MD IMG XR PROCEDURES Final Res ult * CT Abdomen Pelvis W Contrast (02/08/2024 10:58 AM SEISMOGRAPH SHOOTER) Anatomical Region Laterality Modality Body N/A Computed Tomogra phy 02/08/2024 11:0 6 AM SEISMOGRAPH SHOOTER Narrative 02/08/2024 11:10 AM SEISMOGRAPH SHOOTER EXAM DESCRIPTION: CT ABDOMEN PELVIS W CONTRAST [...] Omar Santana D.O. PS: PS Report ID: [id number] Reading Location: [place] [address] Procedure Note Omar Santana DO - 02/08/2024 EXAM DESCRIPTION: CT ABDOMEN [...] Omar Santana D.O. PS: PS Report ID: [id number] Reading Location: [place] [address] us Mike Walker MD IMG CT PROCEDURES Final Result * eGFR (02/08/2024 10:37 AM SEISMOGRAPH SHOOTER) eGFR >90 >=60 mL/min/1. 73 m2 Comment: [...] reviewed 2020. Blood 02/08/2024 10:3 7 AM SEISMOGRAPH SHOOTER 02/08/2024 10:43 AM SEISMOGRAPH SHOOTER Mike Walker MD LAB BLOOD ORDERABLES Final Res ult [facility]) [address] [facility] Department [place] [address] * Differential, auto (02/08/2024 10:37 AM SEISMOGRAPH SHOOTER) Neutrophil abs 3.7 1.5 - 6.5 K/cumm Imm gran abs 0.0 0.0 - 0.1 K/cumm [facility] ([place]) Lymphocyte abs 1.7 0.8 - 3.3 K/cumm [facility] ([place]) Monocyte abs 0.7 0.2 - 0.8 K/cumm [facility] ([place]) Eosinophil abs 0.2 0.0 - 0.5 K/cumm [...] Imm gran pct 0.3 % [facility] ([place]) Comment: Interpretive Data [...] on 2017. Blood 02/08/2024 10:3 7 AM SEISMOGRAPH SHOOTER 02/08/2024 10:43 AM SEISMOGRAPH SHOOTER Mike Walker MD LAB BLOOD ORDERABLES Final Res ult [facility] ([place]) 1 [facility] [place] [address] * CBC with auto differential (02/08/2024 10:37 AM SEISMOGRAPH SHOOTER) WBC 6.3 3.8 - 9.9 K/cumm Hgb 15.9 13.0 - 17.5 g/dL [facility] ([place]) Hct 47.7 38.9 - 50.3 % [facility] ([place]) Plt 219 150 - 400 K/cumm [facility] ([place]) MPV 11.1 9.1 - 12.3 fL [facility] ([place]) RBC 5.34 4.30 - 5.80 M/cumm [facility] ([place]) MCV 89.3 81.3 - 96.4 fL [facility] ([place]) MCH 29.8 27.1 - 33.3 pg [facility] ([place]) MCHC 33.3 32.3 - 35.7 g/dL [facility] ([place]) RDW CV 12.5 11.1 - 14.9 % [facility] ([place]) RDW SD 41.2 35.7 - 48.1 fL [facility] ([place]) NRBC abs 0.00 0.00 - 0.01 K/cumm [facility] ([place]) Blood 02/08/2024 10:3 7 AM SEISMOGRAPH SHOOTER 02/08/2024 10:43 AM SEISMOGRAPH SHOOTER Mike Walker MD LAB BLOOD ORDERABLES Final Res ult [facility] ([place]) [address] [facility] [place] [address] * Comprehensive metabolic panel (02/08/2024 10:37 AM SEISMOGRAPH SHOOTER) Sodium 140 135 - 145 mmol/L Potassium, [...] 7.8 6.5 - 8.5 g/dL [facility] ([place]) Albumin 4.9 3.5 - 5.0 g/dL [facility] ([place]) Alk phos 107 40 - 130 Units/L [facility] ([place]) ALT 24 7 - 55 Units/L [facility] ([place]) AST 22 10 - 50 Units/L [facility] ([place]) Blood 02/08/2024 10:3 7 AM SEISMOGRAPH SHOOTER 02/08/2024 10:43 AM SEISMOGRAPH SHOOTER us Mike Walker MD LAB BLOOD ORDERABLES Final Res ult [facility] ([place]) [address] [facility] [place] [address] * COVID-19 Coronavirus RNA Nasopharyngeal (02/01/2024 7:08 PM SEISMOGRAPH SHOOTER) COVID-19 RNA Negative Negative Nasopharyngeal 02/01/2024 7: 08 PM SEISMOGRAPH SHOOTER 02/01/2024 7:13 PM SEISMOGRAPH SHOOTER Narrative [facility] ([place]) - 02/01/2024 7:48 PM SEISMOGRAPH SHOOTER Is the patient experiencing any symptoms consistent with COVID (eg. Fever, cough, shortness of breath)?->No What is the reason for testing?->Screening prior to Behavioral health admission Interpretive data: Testing performed by [facility]. This test is performed using the CareXtend Xpert Xpress CoV-2 plus assay. This is a real-time RT-PCR test intended for the qualitative detection of nucleic acid from the SARS-CoV-2. This assay has been cleared by the [place] Food and Drug administration. The performance characteristics have been verified by [facility]. Results must be considered in the clinical context, and a negative result does not rule out infection. Interpretive data last revised 2023. Interpretive data: Testing performed by [facility]. This test is performed using the CareXtend Xpert Xpress CoV-2 plus assay. This is a real-time RT-PCR test intended for the qualitative detection of nucleic acid from the SARS-CoV-2. This assay has been cleared by the [place] Food and Drug administration. The performance characteristics have been verified by [facility]. Results must be considered in the clinical context, and a negative result does not rule out infection. Interpretive data last revised 2023. Braeden Damon MD LAB MICROBIOLOGY - GENERAL O RDERABLES Final Result [facility] ([place]) [address] [facility] [place] [address] * eGFR (02/01/2024 7:08 PM SEISMOGRAPH SHOOTER) eGFR >90 >=60 mL/min/1. 73 m2 Comment: [...] last reviewed 2020. Blood 02/01/2024 7:08 PM SEISMOGRAPH SHOOTER 02/01/2024 7:13 PM SEISMOGRAPH SHOOTER us Wendie Christensen MD LAB BLOOD ORDERABLES Bianca garcia Result [facility] ([place]) [address] [facility] [place] [address] * Differential, auto (02/01/2024 7:08 PM SEISMOGRAPH SHOOTER) Neutrophil abs 3.6 1.5 - 6.5 K/cumm Imm gran abs 0.0 0.0 - 0.1 K/cumm [facility] ([place]) Lymphocyte abs 1.9 0.8 - 3.3 K/cumm [...] revised on 2017. Blood 02/01/2024 7:08 PM SEISMOGRAPH SHOOTER 02/01/2024 7:13 PM SEISMOGRAPH SHOOTER Wendie Christensen MD LAB BLOOD ORDERABLES Bianca l Result Performing Organization Address City/[facility]/ZIP Co de Phone Number [facility] ([place]) [address] [facility] [place] [address] * Thyroid Function Lucas (02/01/2024 7:08 PM SEISMOGRAPH SHOOTER) [facility] TSH 1.17 0.30 - 4.20 mcIUnit/mL Blood 02/01/2024 7:08 PM SEISMOGRAPH SHOOTER 02/01/2024 7:13 PM SEISMOGRAPH SHOOTER Braeden Damon MD LAB BLOOD ORDERABLES Final R esult Performing Organization Address City/[facility]/ZIP Co de Phone Number [facility] ([place]) 1 [facility] [place] [address] * Urinalysis reflex to microscopic and culture Urine (02/01/2024 7:08 PM SEISMOGRAPH SHOOTER) Color, ur Yellow Yellow Clarity, ur Clear [...] tendency for uric acid stone formation. Source: [facility] Current Interpretive Data was last revised on [...] Leukocyte esterase, ur Negative Negative [facility] ([place]) UA reflex comment Reflex conditions for microscopic UA and culture not met. [facility] ([place] Urine 02/01/2024 7:08 PM SEISMOGRAPH SHOOTER 02/01/2024 7:13 PM SEISMOGRAPH SHOOTER Braeden Damon MD LAB MICROBIOLOGY - GENERAL O RDERABLES Final Result [facility] ([place]) 1 [facility] Department [place] [address] * CBC with auto differential (02/01/2024 7:08 PM SEISMOGRAPH SHOOTER) WBC 6.3 3.8 - 9.9 K/cumm Hgb 15.4 13.0 - 17.5 g/dL [facility] ([place] Hct 46.0 38.9 - 50.3 % [facility] ([place]) Plt 209 150 - 400 K/cumm [facility] ([place]) MPV 11.1 9.1 - 12.3 fL [facility] ([place]) RBC 5.21 4.30 - 5.80 M/cumm [facility] ([place]) MCV 88.3 81.3 - 96.4 fL [facility] ([place]) MCH 29.6 27.1 - 33.3 pg [facility] ([place]) MCHC 33.5 32.3 - 35.7 g/dL [facility] ([place]) RDW CV 12.5 11.1 - 14.9 % [facility] ([place]) RDW SD 40.8 35.7 - 48.1 fL [facility] ([place]) NRBC abs 0.00 0.00 - 0.01 K/cumm [facility] ([place]) Blood (Blood, Venous) 02/01/2024 7:08 PM SEISMOGRAPH SHOOTER 02/01/2024 7:13 PM SEISMOGRAPH SHOOTER Braeden Damon MD LAB BLOOD ORDERABLES Final R esult [facility] ([place]) 1 [facility] [place] [address] * Drugs of Abuse Screen, Urine without Confirmation (02/01/2024 7:08 PM SEISMOGRAPH SHOOTER) Pathologist [facility] Amphetamine, ur Not Detected CutOff 500ng/mL Comment: Interpretive Data - Amphetamines: Samples containing greater than 500 ng/mL d-methamphetamine or other cross-reacting amphetamine compounds are reported as positive. Amphetamine immunoassays are subject to significant false positive rates due to cross-reactivity of non-amphetamine drugs. Confirmatory testing required for definitive results. Current Interpretive Data was last reviewed 2022. Barbiturates, ur Not Detected CutOff 200ng/mL [facility] ([place]) Comment: Interpretive Data - Barbiturates: Samples containing greater than 200 ng/mL secobarbital or other cross-reacting barbiturate compounds are reported as positive. False positive and false negative results are possible. Confirmatory testing required for definitive results. Current Interpretive Data was last reviewed 2022. Benzodiazepines, ur Not Detected CutOff 100ng/mL [facility] ([place] Comment: Interpretive Data - Benzodiazepines: [...] 2022. Oxycodone, ur Not Detected CutOff 100ng/mL [facility] ([place]) Comment: Interpretive Data - Oxycodone: Samples [...] revised on 2017. Urine 02/01/2024 7:08 PM SEISMOGRAPH SHOOTER 02/01/2024 9:00 PM SEISMOGRAPH SHOOTER Narrative [facility] ([place]) - 02/01/2024 9:28 PM SEISMOGRAPH SHOOTER Drug of Abuse screening is performed by immunoassay for medical purposes only. This is not to be used for Pain Management purposes. Braeden Damon MD LAB URINE ORDERABLES Final R esult Performing Organization Address [facility] Co de Phone Number [facility] ([place]) 1 [facility] [place] [address] * Ethanol (02/01/2024 7:08 PM SEISMOGRAPH SHOOTER) Ethanol <10 <=10 mg/dL Comment: Interpretive Data Legal limit of intoxication > or = 80 mg/dL Levels > or = 400 mg/dL are potentially TOXIC. Current interpretive data was last revised on 2018. Blood 02/01/2024 7:08 PM SEISMOGRAPH SHOOTER 02/01/2024 7:13 PM SEISMOGRAPH SHOOTER Braeden Damon MD LAB BLOOD ORDERABLES Final R esult [facility] ([place]) 1 [facility] [place] [address] * Acetaminophen level (02/01/2024 7:08 PM SEISMOGRAPH SHOOTER) Acetaminophen <5 <=5 mcg/mL Comment: Markedly elevated [...] after ingestion Consult toxicology or poison control ([phone]) for unknown ingestion time. Current interpretive data was last revised 2022. Blood 02/01/2024 7:08 PM SEISMOGRAPH SHOOTER 02/01/2024 7:13 PM SEISMOGRAPH SHOOTER Braeden Damon MD LAB BLOOD ORDERABLES Final R esult Performing Organization Address City/[facility]/ZIP Co de Phone Number [facility] ([place]) [address] [facility] [place] [address] * Salicylate level (02/01/2024 7:08 PM SEISMOGRAPH SHOOTER) Salicylate <5.0 <=5.0 mg/dL Comment: Interpretive Data Toxic: 30 mg/dL or greater. Current interpretive data was last revised 2022. Blood 02/01/2024 7:08 PM SEISMOGRAPH SHOOTER 02/01/2024 7:13 PM SEISMOGRAPH SHOOTER Braeden Damon MD LAB BLOOD ORDERABLES Final R esult [facility] ([place]) [address] [facility] [place] [address] * (ABNORMAL) Comprehensive metabolic panel (02/01/2024 7:08 PM SEISMOGRAPH SHOOTER) Sodium 141 135 - 145 mmol/L Potassium, [...] [facility] ([place]) Blood 02/01/2024 7:08 PM SEISMOGRAPH SHOOTER 02/01/2024 7:13 PM SEISMOGRAPH SHOOTER us Braeden Damon MD LAB BLOOD ORDERABLES Final R esult [facility] ([place]) 1 [facility] [place] [address] from Last 3 Months Insurance [facility] H[facility] H[facility] WORKERS COMPENSATION GENERIC Advance Directives For more information, please contact: [phone] * Full Code (Latest Code Status on File) Date Activated Date Inactivated Comments 01/27/2023 6:08 PM 02/02/2023 1:35 AM * Full Code Date Activated Date Inactivated Comments 01/27/2023 4:42 PM 01/27/2023 6:08 PM Care Teams Extractor Operator Helper Relationship Specialty Start Date End Date Joe Sultana NP 2 [facility] [address] [address] PCP - General Nurse Practitioner 01/15/24
--- OUTSIDE RECORDS SUMMARY | 2024-04-17 13:46 | XMS_ITS | Encounter Summary ---
Author Organization [facility] Address [address] [place] [address] Phone Care Team Providers Care Casework Manager Name Role Phone Jarrell Puentes MD Primary Care Provider [phone] Reason for Visit * Reason Comments Medication Refill Encounter Details Date Type Department Care Team (Late st Contact Info) Description 12/12/2022 Refill [facility] - [facility] [address] [place] [address] Joe Sultana, STEAM CONDITIONER OPERATOR, [employer] [address] [address] Medication Refill Social History Tobacco Use Types Packs/Day Years Used Date Smoking Tobacco: Former Cigarettes 0.5 13 0 04/2009 - 04/2022 Smokeless Tobacco: Former Chew Alcohol Use Standard Drinks/Week Comments Not Currently 0 (1 standard drink = 0.6 oz pur e alcohol) PHQ-2 Answer Date Recorded PHQ-2 Score 0 10/20/2018 Education Answer Date Recorded What is the highest level of school you have completed or the highest degree you have received? 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 No / Unsure 12/14/2022 10:54 AM CDT documented as of this encounter Miscellaneous Notes * Telephone Encounter - Yessi Krishnamurthy RN - 12/13/2022 10:47 AM CDT Name from pharmacy: PAROXETINE 10MG TABLETS Will file in chart as: PARoxetine (PAXIL) 10 MG Tablet The original prescription was reordered on 12/13/2022 by Joe Sultana APRN, [employer]. * Telephone Encounter - Abby Morrison RN - 12/12/2022 11:48 AM CDT duplicate documented in this encounter Plan of Treatment Not on file documented as of this encounter Visit Diagnoses Diagnosis Premature ejaculation documented in this encounter Additional Health Concerns Assessment Noted Time PHQ-9 Depression Total Score: 0 11/30/19 19 7:50 AM CDT documented as of this encounter Care Teams Casework Manager Relationship Specialty Start Date End Date Jarrell Puentes MD [address] [place] [address] PCP - General Family Medicine 08/20/21 documented as of this encounter
--- OUTSIDE RECORDS SUMMARY | 2024-04-17 13:46 | XMS_ITS | Clinical Summary ---
Author Organization [facility] Address [address] [facility] [place] [address] Care Team Providers Care Accounts Receivable Analyst Name Role Phone None, Physician Primary Care Provider Unavailabl e Source Comments [facility],non-owned Affiliates and Associated Physician Practices is amultiple site organization consisting of ambulatory clinics and hospital sitesin [place], [place], [place]. This disclosure is being madepursuant to the Care Everywhere program and may not contain all information available regarding this patient. Last updated 17.[facility] Social History Tobacco Use Types Packs/Day Years Used Date Smoking Tobacco: Never Assessed Sex and Gender Information Value Date Recorded Sex Assigned at Not on file Gender Identity Not on file Sexual Orientation Not on file Plan of Treatment Health Maintenance Due Date Last Done Comments HIV SCREENING 09/28/2007 HEPATITIS C SCREENING 09/23/2010 DTAP/TDAP/TD VACCINES (1 - Tdap) 09/28/2011 HEPATITIS B VACCINE (1 of 3 - 19+ 3-dose series) 09/28/2011 COVID-19 VACCINE ( - 2023-2 5 season) 2023 02/06/2021, 01/14/2021 INFLUENZA VACCINE (#1) 2023 DEPRESSION SCREENING 02/15/2024 ZOSTER VACCINE (1 of 2) 2042 HIB VACCINE Aged Out No longer eligi ble based on patient's age to complete this topic HPV VACCINE Aged Out No longer eligi ble based on patient's age to complete this topic MENINGOCOCCAL (Group B) VACCINE Aged Out No longer eligible b ased on patient's age to complete this topic MENINGOCOCCAL VACCINE Aged Out No humza [place] eligible based on patient's age to complete this topic PNEUMOCOCCAL VACCINE Aged Out No long er eligible based on patient's age to complete this topic Care Teams Accounts Receivable Analyst Relationship Specialty Start Date End Date None, Physician [address] [place] [address] PCP - General 07/27/22
--- OUTSIDE RECORDS SUMMARY | 2024-04-17 13:46 | XMS_ITS | Clinical Summary ---
Author Organization [facility] Address [address] [place] [address] Phone Care Team Providers Care Waistline Joiner Name Role Phone Jarrell Puentes MD Primary Care Provider [phone] Allergies Active Allergy Reactions Criticality Noted Date Comments Cephalexin Nausea,Vomiting Medium 11/13/2018 Medications ibuprofen (MOTRIN) 600 MG Tablet TAKE 1 TABLET BY MOUTH EVERY 6 HOURS NEEDED FOR PAIN 3 Active ondansetron (ZOFRAN-ODT) 4 MG TABLET DISPERSIBLE DISSOLVE 1 TABLET ON TOP OF THE TONGUE EVERY 6 HOURS NEEDED FOR NAUSEA/VOMTIN G 3 Active ARIPiprazole (ABILIFY) 2 MG Tablet Take 2 mg by mouth daily. 3 Active QUEtiapine Fumarate (SEROquel) 50 MG Tablet TAKE 1 TABLET BY MOUTH EVERY DAY AT BEDTIME 3 Active LORazepam (Ativan) 0.5 MG Tablet Take 0.5 mg by mouth every 6 hours as needed. Active Active Problems Problem Noted Date Diagnosed Date Paralysis of leg, right, transient 08/12/2021 Diarrhea 07/31/2018 Non-intractable vomiting with nausea 07/31/2018 Bipolar 1 disorder, depressed 06/02/2018 Visit for well man health check 06/02/2018 Right upper quadrant abdominal pain 06/02/2018 Gastroenteritis 02/15/2016 Overview (06/02/2018): 2 to 3 times a year Encounters Date Type Department Care Team Description 03/07/2024 Telephone [facility] [place] [address] [place] [address] Joe Sultana APRN, J[place]SE[place] KNITTER Advice Only 03/01/2024 [facility]phone [facility] [address] [place] [address] Joe Sultana, AMERICO, JERSEY KNITTER 02/07/2024 10:00 AM METEOROLOGICAL ENGINEER [facility] [address] [place] [address] Shwetha Romero PAC Bipolar 1 disorder, depressed (HCC) (Primary Dx) Discharge Disposition: Discharged to home or Selfcare 02/07/2024 Travel from Last 3 Months Immunizations Immunization Administration Dates Next Due Covid-19, Mrna, Lnp-s, Pf, 3 0 Mcg/0.3 Ml Dose (Perpetuall) 02/06/2021,01/14/2021 DTAP VACCINE 12/13/1997 DTP Vaccine 1992 DTP-Hib 08/31/1994,04/22/1993,01/27/1993 Hepatitis A, Pediatric, Unsp ecified Formulation 10/05/2007 Hepatitis B Vaccine, Pediatric/adolescent 04/22/1993,1992,1992 Hepatitis B Vaccine,unspecif ied Formulation 06/12/2008,01/13/2008,12/13/2007 Hib Vaccine,unspecified Formulation 1992 MMR Vaccine 12/13/1997,08/31/1994 Meningococcal Vaccine 04/03/2009,10/05/2007 Novel [id number], Injectable 02/26/2009 OPV 12/13/1997, 5,01/27/1993,12/17 TD VACCINE 05/14/2007 TDAP Vaccine 05/21/2023,07/10/2016 Family History Medical History Relation Name Comments No Known Problems Brother 1 Depression Brother 2 Other-comment Brother 2 suicidal thoug hts Colon Cancer Father Depression Father MDD Schizophrenia Father Suicide Attempts Father Cause Cancer Maternal Grandfather prostat e/ perforated colon High Cholesterol Maternal Grandfather Hypertension Maternal Grandfather No Known Problems Maternal Grandmother No Known Problems Mother Melanoma Paternal Grandfather Relation Name Status Comments Brother 1 Alive Brother 2 Father Maternal Grandfather Alive Maternal Grandmother Alive Mother Alive Paternal Grandfather Social History Tobacco Use Types Packs/Day Years Used Date Smoking Tobacco: Former Cigarettes 0.5 13 0 04/2009 - 04/2022 Smokeless Tobacco: Former Chew Tobacco Cessation:Counseling Given: Not Answered Alcohol Use Standard Drinks/Week Comments Not Currently 24 (1 standard drink = 0.6 oz pu re alcohol) PHQ-2 Answer Date Recorded Total Score - Questions 1-9 5 01/15 Education Answer Date Recorded What is the [...] 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 Not on file Not on file Last Filed Vital Signs Vital Sign Reading Time Taken Comments Blood Pressure 114/74 02/07/2024 9:49 AM METEOROLOGICAL ENGINEER Pulse 96 02/07/2024 9:49 AM METEOROLOGICAL ENGINEER Temperature 37.2 C (98.9 F) 02/07/2024 9:49 AM METEOROLOGICAL ENGINEER Respiratory Rate 18 05/21/2023 10:00 PM CDT Oxygen Saturation 100% 02/07/2024 9:49 AM METEOROLOGICAL ENGINEER Inhaled Oxygen Concentration - - Weight 65.8 kg (145 lb) 02/07/2024 9:49 AM METEOROLOGICAL ENGINEER Height 172.7 cm (5' 8 ) 02/07/2024 9:49 AM METEOROLOGICAL ENGINEER Body Mass Index 22.05 02/07/2024 9:49 AM METEOROLOGICAL ENGINEER Plan of Treatment Health Maintenance Due Date Last Done Comments Hepatitis C Virus (HCV) Screening 1992 Influenza Immunization (#1) 2023 SARS-COV-2 Immunization ( season) 2023 02/06/2021, 01/14/2021 DTaP/Tdap/Td Immunization (8 - Td or Tdap) 05/20/2033 05/21/2023, 07/10/2016, 05/14/2007, Additional history exists Respiratory Syncytial Virus (RSV) Immunization (Adult) (1 - 1-dose 75+ series) 09/28/2067 Hepatitis B Immunization Completed 009, 01/13/2008, 12/13/2007, Additional history exists Meningococcal Immunization (ACWY) Completed 04/03/2009, 10/05/2007 Pneumococcal Immunization Combined Aged Out No longer eligible based on patient's age to complete this topic Rotavirus Immunization Aged Out No lo nger eligible based on patient's age [place] [address] Care Teams Waistline Joiner Relationship Specialty Start Date End Date Jarrell Puentes MD [address] [place] [address] PCP - General Family Medicine 08/20/21
[2024-04-17 14:12] LABS: EDCOVIDSCREEN Negative (Negative); EDINFLUASCREEN Negative (Negative); EDINFLUBSCREEN Negative (Negative)
--- NOTE | 2024-04-17 14:13 | ED_ITS ---
HPI - URI/Sore Throat General Chief Complaint: Upper Respiratory Infection Stated Complaint: flu like symptoms/chest burning Time Seen by Provider: 04/17/24 14:13 Source: patient, RN notes reviewed and old records reviewed Mode of arrival: ambulatory Limitations: no limitations History of Present Illness HPI Narrative: 33 year old male presents to express care with complaints of awakening this morning having cough with chest burning and body aches. Patient reports that he had fever this morning of 101F and he did take Tylnol at 0930 this morning. Patient reports that he has had known exposure to Influenza at work. Patient reports that he needs work note for today. MD elicited complaint: fever, cough (chest burning), nasal congestion and other (body aches) Onset (ago): day(s) (1) Pain scale (0-10): 6 Able to tolerate fluids by mouth: Yes Treatments prior to arrival: acetaminophen Related Data Allergies Allergy/AdvReac Type Severity Reaction Status Date / Time cephalexin (From Keflex) Allergy Unknown Unknown Verified 04/17/24 12:26 Review of Systems Review of Systems: CONSTITUTIONAL: Reports malaise, chills, sweats, or fever. EYES: Denies visual changes, redness, or discharge. ENT: Reports rhinorrhea, congestion, no sinus pain, no otalgia and no sore throat. CARDIOVASCULAR: Denies chest pain, palpitations, or edema. RESPIRATORY: Reports cough.? Denies dyspnea. GASTROINTESTINAL: Denies abdominal pain, nausea, vomiting, diarrhea SKIN: Denies rash or itching. MUSCULOSKELETAL: Reports myalgia. NEUROLOGIC: Denies headache. All systems reviewed & are unremarkable except as noted in HPI and below PMFSH Surgical History Surgical History (Updated 04/19/24 @ 18:38 by Joanna Haas NP) H/O hand surgery mass removed from left palm Social History Social History (Updated 04/19/24 @ 18:35 by Joanna Haas NP) Smoking status: Current every day smoker Tobacco type: cigarettes Alcohol intake: unknown Substance use: unknown Gender identity (if verbalized by the patient): Male Comments At time of signature, agree with nursing past medical, surgical, social and family history. There is no relevant family history pertinent to the presenting complaint Exam Narrative: GENERAL: Well-appearing, well-nourished, and in no acute distress. HEAD: Normocephalic EYES: PERRLA, conjunctivae clear ENT: Nares clear, turbinates edematous and erythematous, clear discharge. Mucous membranes moist. TM pearly kelley with dull light reflex bilaterally; no tragal tenderness. Oropharynx erythematous without lesions. Tonsils not enlarged and without exudate, no drooling, no hoarseness, no trismus, uvula midline. post nasal drainage NECK: Supple. No lymphadenopathy CHEST: Clear to auscultation, breath sounds equal. No wheezing, rhonchi, rales, or stridor. No respiratory distress, speaks in full sentences.cough noted SAO2 100% on room air HEART: Regular rate and rhythm. No murmur heard. SKIN: Warm, dry, no rash. NEURO: Alert and oriented x3. PSYCH: Normal mood and affect Course Course Emergency Course: Patient is aware of diagnosis, understands and agrees to treatment plan.? Anticipatory guidance given.? Patient agrees to follow-up as directed and is aware of reasons to seek care at the emergency department. Portions of this record may have been created with voice recognition software Level of Care: Express Care Visit Vital Signs Vital signs: Vital Signs Temperature 36.8 C 04/17/24 12:18 Pulse Rate 78 04/17/24 12:18 Respiratory Rate 20 04/17/24 12:18 Blood Pressure 128/74 04/17/24 12:18 Pulse Oximetry 100 04/17/24 12:18 Oxygen Delivery Room Air 04/17/24 12:18 Temperature 36.8 C 04/17/24 12:18 Pulse Rate 78 04/17/24 12:18 Respiratory Rate 20 04/17/24 12:18 Blood Pressure 128/74 04/17/24 12:18 Pulse Oximetry 100 04/17/24 12:18 Oxygen Delivery Room Air 04/17/24 12:18 Reviewed MDM - URI/Sore Throat MDM Narrative Medical decision making narrative: Differential diagnosis considered: Ramirez virus, strep pharyngitis, allergic rhinitis, upper respiratory tract infection, sinusitis, rhinosinusitis, nasopharyngitis. viral pharyngitis, otitis media, otitis externa, pneumonia, bronchitis, viral cough syndrome, viral syndrome, and influenza.? Exam findings show no acute concerns or changes; patient is non-toxic appearing and is in no distress.? Patient is appropriate for outpatient treatment and follow-up. Differential Diagnosis Differential diagnosis: Likely upper respiratory infection, viral infection, influenza and other (COVID, acute cough) Medical Records Attestation: I reviewed the patient's medical records. Lab Data Attestation: I reviewed the patient's lab results. Lab results narrative: Influenza A negative, Influenza B negative, Covid antigen negative Labs: Lab Results 04/17/24 Range/Units 13:52 POC Influenza A Ag Negative (Negative) POC Influenza B Ag Negative (Negative) POC SARS CoV-2 Ag Negative (Negative) reviewed Critical Care Time Critical Care Time Critical Care Time: No Discharge Plan Discharge Clinical Impression: Flu-like symptoms Patient Disposition: Home, Self-Care Condition: Stable Instructions: Antibiotic Form, Upper Respiratory Infection (ED) Additional Instructions: Increase fluids especially juices and water Zfgm-rlr-qtzgfky cough and cold medicine of your choice for your symptoms Tylenol or ibuprofen for any fever pain Zyrtec Claritin or Cheryl daily heat to the face 20-30 minutes 4-6 times a day for pain Salt water gargles, throat lozenges or throat sprays as desired Patient needs to retest tomorrow morning, it may be too early today to test Cough medication OTC as needed If your symptoms persist, change or worsen significantly before you can contact your personal physician then please, without delay, go to the emergency department for further evaluation. Follow-up with PCP in 7-10 days or sooner if needed Patient Language: Guatemalan Prescriptions: New (DME) COVID-19,flu A,B antigen test Kit See Rx Instructions .Route Qty: 1 0RF Rx Instructions: As directed Follow-up/Referrals: PHYSICIAN NOT ON STAFF,NONSTAFF [Primary Care Provider] - Stand Alone Forms: Work/School Release IP Time of Disposition: 14:23 Quality Lili Coma Scale Eyes: Open Verbal: Oriented and Alert Motor: Follows Commands [place] Coma Total Score: 15
== END 2024-04-17 14:28 | disposition home or self-care (01) ==
PROVIDERS: Emergency Provider Registered Nurse
DX: J11.1 Influenza due to unidentified influenza virus with other respiratory manifestations (principal); Z20.822 Contact with and (suspected) exposure to COVID-19; F17.210 Nicotine dependence, cigarettes, uncomplicated
CPT/HCPCS: 87426; 87804; 99213; G0463